=== PATIENT | female | born 1970 | race Two or more races ===

== ENCOUNTER 2023-06-11 12:21 | Outpatient (REF) | payer OTHER, SELFPAY ==
[2023-06-11 14:31] LABS: Erythrocyte Sedimentation Rate 2 MM/HR (0-20)
[2023-06-15 22:48] LABS: PTT (LAC) Screen 37 sec (<=40)
[2023-06-16 13:23] LABS: Cardiolipin IgG Ab <2.0 GPL-U/mL; Cardiolipin IgM Ab <2.0 MPL-U/mL
== END 2023-06-11 12:22 | disposition home or self-care (01) ==
LOC: HO.LAB 12:21
PROVIDERS: PCP Internal Medicine; Visit Provider Psychiatry & Neurology Neurology
DX: I63.9 Cerebral infarction, unspecified (principal)
CPT/HCPCS: 36415; 85597; 85598; 85613; 85652; 85670; 85730; 86147

== ENCOUNTER 2023-06-25 13:01 | Outpatient (AMB) | payer OTHER, SELFPAY ==
--- NOTE | 2023-06-25 13:02 | A.OFFVIS_ITS ---
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/ Cerebral infarction ?ESHA Intake Note: NPV w/ EKG Placement Assistant Required: No Accompanied by: Self / Same As Patient Allergies No Known Allergies [No Known Allergies*] Allergy (Verified 06/25/23 13:08) Medication List - Last Reconciled 06/25/23 by Michael Richter MD atorvastatin 80 mg PO BEDTIME clopidogrel (Plavix) 75 mg PO DAILY empagliflozin (Jardiance) 25 mg PO QAM hydrocodone-acetaminophen 5-300 mg 1 tab PO BID PRN lansoprazole 30 mg PO DAILY lisinopril 5 mg PO DAILY lorazepam 1 mg PO BEDTIME PRN metformin 1,000 mg PO BID semaglutide (Ozempic) 1 mg subcut QWEEK valacyclovir 500 mg PO DAILY HPI HPI Comments History of Present Illness Details This is a cardiology consultation regarding transesophageal ech ocardiogram. Patient has a history of diabetes and high lipids and she had a stroke in April of 2023. Apparently had right facial numbness and went to [facility] [place]. She states she had an echocardiogram including bubble study per her description. That was apparently unremarkable and then she was discharged home. She has seen Neurology and they have recommended a ESHA for further workup. Otherwise, she states she is feeling fine. Does not have any cardiac history like coronary disease. No cardiac symptoms either. She states she was much more overweight and in the last year has been losing weight. [facility] Surgical History (Updated 06/25/23 @ 13:14 by Renetta Taylor) No pertinent past surgical history Family History (Updated 06/25/23 @ 13:13 by Renetta Taylor) Mother No problems noted. Father No problems noted. Sister Heart problem Social History (Updated 06/25/23 @ 13:12 by Renetta Taylor) Alcohol intake: former Patient Tobacco Use Status: Former Tobacco user Quit Date: 2008 Review of Systems Const Denies weakness ENT Denies dizziness Card Denies chest pain, Denies chest pain with activity, Denies syncope, Denies rapid heart rate, Denies pedal edema, Denies edema, Denies leg edema, Denies lightheadedness, Denies palpitations, Denies dyspnea, Denies dyspnea on exertion and Denies orthopnea Resp Denies cough, Denies dyspnea and Denies dyspnea on exertion GI Denies hematochezia and Denies change in stool character Musc Denies abnormal gait, Denies muscle cramps, Denies muscle weakness, Denies numbness, Denies radiating pain into limb and Denies tingling Neuro Denies abnormal gait, Denies dizziness, Denies syncope, Denies numbness, Denies tingling and Denies weakness Endo Denies palpitations Physical Exam Vital Signs: Last Vital Signs Pulse 93 06/25/23 13:05 BP 108/62 06/25/23 13:05 BMI result Body Mass Index 28.7 Const General: comfortable and no acute distress Orientation/consciousness: patient oriented x3 HEENT Other: Unremarkable Head: Yes normal to inspection Neck Neck: Yes normal visual inspection Chest Chest palpation & inspection: normal inspection of the chest Resp Auscultation: clear to auscultation bilaterally Cardio Palpation: normal PMI Heart sounds: S1 normal heart sound present, S2 normal heart sound present, no gallops, no murmurs and no rubs GI Palpation (GI): Soft to palpation Back/Spine/Pelvis Other: unremarkable Skin General skin exam: no rashes or lesions noted Neuro General: patient oriented x3 Extrem General: Yes normal to inspection Psych Mental Status: mental status grossly normal Office Procedures EKG Details: EKG shows sinus rhythm at 93/Min; left atrial enlargement; no significant ST-T changes and otherwise unremarkable. [place] [address][id number], Complete Assessment & Plan Assessment & Plan (1) Stroke: Code(s): I63.9 - Cerebral infarction, unspecified Qualifiers: CVA mechanism: unspecified Qualified Code(s): I63.9 - Cerebral infarction, unspecified Plan Per neurology note, left acute coronary radiata infarct based on MRI. Will get records from [facility] including echocardiogram. She does not have any contraindications for transesophageal echocardiogram. She has had endoscopies before for apparently reflux disease, but does not have any dysphagia. Discussed with patient about the procedure and she is willing. Will schedule. Orders: Orders CA echo transesophageal Today I63.9 - Cerebral infarction, unspecified Coding Level of Care Code New Pt Level 4 (02707) Diagnoses Cerebrovascular accident (CVA), unspecified mechanism I63.9 CVA mechanism: unspecified CPT Codes EKG - CPT: 46739-[id number], Complete ([id number])
[2023-06-25 13:05] VITALS: BP 108/62; PULSE 93; BMI 28.7
== END 2023-06-25 13:31 | disposition home or self-care (01) ==
PROVIDERS: PCP Internal Medicine; Visit Provider Internal Medicine
DX: I63.9 Cerebral infarction, unspecified (principal)
CPT/HCPCS: 93010; 99204

== ENCOUNTER → 2023-06-25 13:01 | Outpatient (BNVA) | payer OTHER, SELFPAY | PROVIDERS: PCP Internal Medicine; Visit Provider Internal Medicine | DX: Z86.73 Personal history of transient ischemic attack (TIA), and cerebral infarction without residual deficits (principal) | CPT/HCPCS: 93005 ==

== ENCOUNTER 2023-07-16 09:27 | Day surgery (SDC) | payer OTHER, SELFPAY ==
[2023-07-16 09:45] VITALS: BMI 28.5
[2023-07-16 09:47] VITALS: BP 120/72; PULSE 96; TEMP 36.6; O2SAT 97
--- NOTE | 2023-07-16 10:32 | MHC.SHP ---
Pre-Procedural Eval Section A Date of Service: 07/16/23 The patient is an INPATIENT: No The History & Physical has been completed within 30 days and I have reviewed it.: Yes Section B Chief Complaint: Cerebral infarction, unspecified Allergies: Allergies Allergy/AdvReac Type Severity Reaction Status Date / Time No Known Allergies Allergy Verified 06/25/23 13:08 [No Known Allergies*] Plan I have reviewed the history and physical and performed a pertinent physical examination on my patient. No changes have occurred unless specified. Time Spent With Patient Time: Total time managing care of this patient today ____ minutes.
[2023-07-16 11:45] VITALS: BP 127/70; PULSE 106; RESP 35; TEMP 36.4; O2SAT 95
[2023-07-16 12:00] VITALS: BP 121/72; PULSE 92; RESP 20; O2SAT 95
[2023-07-16 12:15] VITALS: BP 118/64; PULSE 91; RESP 20; TEMP 36.8; O2SAT 95
== END 2023-07-16 12:53 | disposition home or self-care (01) ==
PROVIDERS: PCP Internal Medicine; Visit Provider Internal Medicine
PROC: (CPT 93312; principal; 2023-07-16 11:00)
DX: I63.9 Cerebral infarction, unspecified (principal); E11.9 Type 2 diabetes mellitus without complications; E78.5 Hyperlipidemia, unspecified; Z79.01 Long term (current) use of anticoagulants; Z79.85 Long-term (current) use of injectable non-insulin antidiabetic drugs; Z79.899 Other long term (current) drug therapy; Z87.891 Personal history of nicotine dependence
CPT/HCPCS: 93312; 82947

== ENCOUNTER → 2023-07-16 10:32 | Outpatient (BNV) | payer OTHER, SELFPAY | PROVIDERS: PCP Internal Medicine; Visit Provider Internal Medicine | DX: I63.9 Cerebral infarction, unspecified (principal) | CPT/HCPCS: 93312; 93320; 93325 ==

== ENCOUNTER → 2023-07-30 10:41 | Outpatient (REF) | payer OTHER, SELFPAY ==
--- NOTE | 2023-07-30 10:43 | HM_ITS ---
Cardiac event monitor Indication: Paroxysmal atrial fibrillation Technique: Patient was hooked up to cardiac event monitor on 07/30/2023 for total period of 30 days. Compliance rate was 91.3% of the time. Findings: Baseline rhythm was normal sinus rhythm with minimal heart rate of 85 beats per minute and maximum heart rate 157 beats per minute. 55% of time noted sinus tachycardia with frequent sinus tachycardia. There were no pauses noted. Rare isolated PACs were noted. No episodes of atrial fibrillation 1 noted. Patient reported to events without any accompanying symptoms correlating with sinus rhythm. Conclusion: 1. Baseline was normal sinus rhythm with no pauses with frequent sinus tachycardia 2. Rare PACs noted 3. No episodes of atrial fibrillation 4. Patient reported events correlated with sinus rhythm MTDD
== END ==
LOC: HO.CARD 10:41
PROVIDERS: PCP Internal Medicine; Visit Provider Internal Medicine
DX: I48.91 Unspecified atrial fibrillation (principal)
CPT/HCPCS: 93270

== ENCOUNTER → 2023-07-30 10:43 | Outpatient (BNV) | payer OTHER, SELFPAY | PROVIDERS: PCP Internal Medicine; Visit Provider Internal Medicine Cardiovascular Disease | DX: R00.0 Tachycardia, unspecified (principal) | CPT/HCPCS: 93272 ==

== ENCOUNTER 2023-09-10 13:25 | Outpatient (AMB) | payer OTHER, SELFPAY ==
--- NOTE | 2023-09-10 13:26 | A.OFFVIS_ITS ---
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 Accompanied by: Self / Same As Patient Allergies No Known Allergies [No Known Allergies*] Allergy (Verified 09/10/23 13:30) Medication List - Last Reconciled 09/10/23 by Michael Richter MD atorvastatin 80 mg PO BEDTIME clopidogrel (Plavix) 75 mg PO DAILY empagliflozin (Jardiance) 25 mg PO QAM hydrocodone-acetaminophen 5-300 mg 1 tab PO BID PRN lansoprazole 30 mg PO DAILY lisinopril 5 mg PO DAILY lorazepam 1 mg PO BEDTIME PRN metformin 1,000 mg PO BID semaglutide (Ozempic) 2 mg subcut QWEEK valacyclovir 500 mg PO DAILY HPI HPI Comments History of Present Illness Details Andie returns for follow-up. She was referred by Neurology for evaluation of cardiac source of embolus. She has a history of diabetes, high lipids and she had a stroke in April 2023. Apparently had right facial numbness and went to [facility]. She states she had an echocardiogram including bubble study per her description. That was apparently unremarkable and then she was discharged home. She has seen Neurology and they have recommended ESHA/ILR. Otherwise, she states she is feeling fine. Does not have any cardiac history like coronary disease. No cardiac symptoms either. She states she was much more overweight and in the last year has been losing weight. Recently ESHA was completed and that is unremarkable. [facility] Medical History (Updated 07/15/23 @ 08:56 by Nola Mcclure RN) GERD (gastroesophageal reflux disease) Elevated cholesterol CVA (cerebral vascular accident) Diabetes Surgical History No pertinent past surgical history Family History Mother No problems noted. Father No problems noted. Sister Heart problem Social History (Updated 09/10/23 @ 13:31 by Renetta Taylor) Alcohol intake: current Alcohol intake frequency: holidays/special occasions only Patient Tobacco Use Status: Former Tobacco user Quit Date: Review of Systems Const Denies weakness ENT Denies dizziness Card Denies chest pain, Denies chest pain with activity, Denies syncope, Reports rapid heart rate, Denies pedal edema, Denies edema, Denies leg edema, Denies palpitations, Reports dyspnea, Denies dyspnea on exertion and Denies orthopnea Resp Denies cough, Reports dyspnea and Denies dyspnea on exertion GI Denies hematochezia and Denies change in stool character Musc Denies abnormal gait, Denies muscle cramps, Denies muscle weakness, Denies numbness, Denies radiating pain into limb and Denies tingling Neuro Denies abnormal gait, Denies dizziness, Denies syncope, Denies numbness, Denies tingling and Denies weakness Endo Denies palpitations Physical Exam Vital Signs: Last Vital Signs Pulse 113 H 09/10/23 13:27 BP 108/68 09/10/23 13:27 BMI result Body Mass Index 28.5 Const General: comfortable and no acute distress Orientation/consciousness: patient oriented x3 HEENT Other: Unremarkable Head: Yes normal to inspection Neck Neck: Yes normal visual inspection Chest Chest palpation & inspection: normal inspection of the chest Resp Auscultation: clear to auscultation bilaterally Cardio Palpation: normal PMI Heart sounds: S1 normal heart sound present, S2 normal heart sound present, no gallops, no murmurs and no rubs GI Palpation (GI): Soft to palpation Back/Spine/Pelvis Other: unremarkable Skin General skin exam: no rashes or lesions noted Neuro General: patient oriented x3 Extrem General: Yes normal to inspection Psych Mental Status: mental status grossly normal Assessment & Plan Assessment & Plan (1) Stroke: Code(s): I63.9 - Cerebral infarction, unspecified Qualifiers: CVA mechanism: unspecified Qualified Code(s): I63.9 - Cerebral infarction, unspecified Plan Per neurology note, left acute coronary radiata infarct based on MRI. [facility]chocardiogram from [facility] showed hyperdynamic LVEF, mild LVH and otherwise unremarkable. Bubble study was negative. Transesophageal echocardiogram showed normal LVEF, no evidence of interatrial shunting. Small degree of aortic plaque. Discussed with neurology and they are recommending implantable loop recorder placement. Explained the patient about the procedure and also showed her the device and how it works. She understands and agrees. Will arrange the same. Orders: Orders Implantable Loop Rec Implant Today I63.9 - Cerebral infarction, unspecified Coding Level of Care Code Est Pt Level 4 (47496) Diagnoses Cerebrovascular accident (CVA), unspecified mechanism I63.9 CVA mechanism: unspecified
[2023-09-10 13:27] VITALS: BP 108/68; PULSE 113; BMI 28.5
== END 2023-09-10 13:49 | disposition home or self-care (01) ==
PROVIDERS: PCP Internal Medicine; Visit Provider Internal Medicine
DX: I63.9 Cerebral infarction, unspecified (principal)
CPT/HCPCS: 99214

== ENCOUNTER → 2023-09-10 13:25 | Outpatient (BNVA) | payer OTHER, SELFPAY | PROVIDERS: PCP Internal Medicine; Visit Provider Internal Medicine | DX: I63.9 Cerebral infarction, unspecified (principal) | CPT/HCPCS: 99212 ==

== ENCOUNTER 2023-09-16 12:38 | Outpatient (REF) | payer OTHER, SELFPAY ==
[2023-09-16 13:44] VITALS: BMI 27.6
[2023-09-16 13:45] VITALS: BP 135/83; PULSE 95; RESP 16; TEMP 36.7; O2SAT 97
[2023-09-16 14:13] VITALS: BP 123/75; PULSE 88; RESP 16; O2SAT 96
--- NOTE | 2023-09-16 14:13 | P.BOP_ITS ---
Brief Operative Note Date of Service: 09/16/23 Pre-op diagnosis: CVA Post-op diagnosis: same Procedure: Placement of implantable loop recorder Implants: After obtaining informed consent patient was laid supine on the table in minor surgery suite. Patient is precordial area was then prepped and draped in a sterile fashion. Patient was then given 2% lidocaine intradermally and subcutaneously in the left parasternal space. A [employer] implantable loop recorder with serial number [id number] was implanted in the subcutaneous space using modified Seldinger technique. Measured R-wave at 0.5 mV. The wound was then closed with Steri-Strips. Pressure dressing was applied. Patient tolerated the procedure well Surgeon: Darrin Mckeon MD Anesthesia: local Was an Surg Rn used for this Procedure?: No Estimated blood loss (mL): 2 Pathology: none sent Condition: stable Disposition: same day
== END 2023-09-16 12:39 | disposition home or self-care (01) ==
LOC: HO.MS 12:38
PROVIDERS: PCP Internal Medicine; Visit Provider Internal Medicine Cardiovascular Disease
PROC: (CPT 33285; principal; 2023-09-16 14:10)
DX: I63.9 Cerebral infarction, unspecified (principal)
CPT/HCPCS: 33285; C1764

== ENCOUNTER → 2023-09-16 12:38 | Outpatient (BNV) | payer OTHER, SELFPAY | PROVIDERS: PCP Internal Medicine; Visit Provider Internal Medicine Cardiovascular Disease | DX: I63.9 Cerebral infarction, unspecified (principal) | CPT/HCPCS: 33285 ==

== ENCOUNTER 2023-09-25 12:52 | Outpatient (AMB) | payer OTHER, SELFPAY ==
[2023-09-25 12:53] VITALS: BP 140/50; PULSE 99; BMI 28.1
--- NOTE | 2023-09-25 12:53 | MHC.OFFVIS ---
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 Accompanied by: Self / Same As Patient Allergies epinephrine Adverse Reaction (Verified 09/16/23 14:39) Palpitations Medication List - Last Reconciled 09/25/23 by Zeny Mckeon NP atorvastatin 80 mg PO BEDTIME clopidogrel (Plavix) 75 mg PO DAILY empagliflozin (Jardiance) 25 mg PO QAM hydrocodone-acetaminophen 5-300 mg 1 tab PO BID PRN lansoprazole 30 mg PO DAILY lisinopril 5 mg PO DAILY lorazepam 1 mg PO BEDTIME PRN metformin 1,000 mg PO BID semaglutide (Ozempic) 2 mg subcut QWEEK valacyclovir 500 mg PO DAILY HPI HPI Comments History of Present Illness Details 52-year-old female here for a wound check after ILR placement. She had the ILR placed on 09/16/[address] Mckeon. Patient reports no complaints at this time and has been doing well since she last seen Dr. Richter. She reports she had pain when she went to hug her and she stretched up but denies any other pain. She also denies any fever, chills, odor, palpitations, or shortness of breath. Site is healing well and as expected. [facility] Medical History (Updated 09/25/23 @ 14:05 by Zeny Mckeon NP) GERD (gastroesophageal reflux disease) Elevated cholesterol CVA (cerebral vascular accident) Diabetes Surgical History No pertinent past surgical history Family History Mother No problems noted. Father No problems noted. Sister Heart problem Social History Alcohol intake: current Alcohol intake frequency: holidays/special occasions only Patient Tobacco Use Status: Former Tobacco user Quit Date: Review of Systems Const Denies chills, Denies fatigue, Denies fever(s), Denies frequent falls, Denies weakness, Denies weight gain and Denies weight loss ENT Denies dizziness Card Denies chest pain, Denies edema, Denies leg edema, Denies lightheadedness, Denies palpitations, Denies dyspnea and Denies dyspnea on exertion Resp Denies cough, Denies dyspnea and Denies dyspnea on exertion GI Denies hematochezia Musc Denies abnormal gait, Denies muscle weakness, Denies numbness, Denies radiating pain into limb and Denies tingling Neuro Denies abnormal gait, Denies dizziness, Denies frequent falls, Denies numbness, Denies tingling and Denies weakness Endo Denies fatigue and Denies palpitations Physical Exam Vital Signs: Last Vital Signs Pulse 99 09/25/23 12:53 BP 140/50 H 09/25/23 12:53 BMI result Body Mass Index 28.1 Const General: healthy appearing and no acute distress Orientation/consciousness: patient oriented x3 HEENT Head: Yes normal to inspection Eyes General: appearance normal, both eyes and all related structures Neck Neck: Yes normal visual inspection Chest Chest palpation & inspection: normal inspection of the chest Resp Effort & Inspection: normal respiratory effort Auscultation: clear to auscultation bilaterally Cardio Jugular venous distension: no JVD Palpation: normal PMI Rate: regular rate Rhythm: regular rhythm Heart sounds: S1 normal heart sound present, S2 normal heart sound present, no click, no gallops, no murmurs and no rubs GI Inspection: Yes normal to inspection Palpation (GI): Soft to palpation Skin General skin exam: no rashes or lesions noted Neuro General: patient oriented x3 Extrem General: Yes normal to inspection Psych Appearance: grossly normal Assessment & Plan Assessment & Plan (1) Implantable loop recorder present: Comment: 09/16/[address] Mckeon post CVA Code(s): Z95.818 - Presence of other cardiac implants and grafts Plan Wound is healing appropritately. Site intact and dry. Steri-strips removed. Informed to report any opening of the site, fever, chills, odor, or drainage. Remote monitoring explained. Coding Level of Care Code Est Pt Level 3 (69398) Diagnoses Implantable loop recorder present Z95.818
[2023-09-25 13:08] VITALS: BP 110/62
== END 2023-09-25 13:14 | disposition home or self-care (01) ==
PROVIDERS: PCP Internal Medicine; Visit Provider Nurse Practitioner
DX: Z95.818 Presence of other cardiac implants and grafts (principal)
CPT/HCPCS: 99213

== ENCOUNTER → 2023-09-25 12:52 | Outpatient (BNVA) | payer OTHER, SELFPAY | PROVIDERS: PCP Internal Medicine; Visit Provider Nurse Practitioner | DX: Z95.818 Presence of other cardiac implants and grafts (principal) | CPT/HCPCS: 99212 ==

== ENCOUNTER → 2023-10-24 23:59 | Outpatient (BNV) | payer OTHER, SELFPAY ==
--- NOTE | 2023-10-26 19:38 | MHC.OFFVIS ---
Intake Intake Visit Reasons: Remote ILR Check- [employer] Allergies epinephrine Adverse Reaction (Verified 09/16/23 14:39) Palpitations PFSH Medical History GERD (gastroesophageal reflux disease) Elevated cholesterol CVA (cerebral vascular accident) Diabetes Surgical History No pertinent past surgical history Family History Mother No problems noted. Father No problems noted. Sister Heart problem Social History Alcohol intake: current Alcohol intake frequency: holidays/special occasions only Patient Tobacco Use Status: Former Tobacco user Quit Date: Office Procedures Cardiac Device Check Cardiac Device Check Details: Date of service 10/23/2023; in the current monitoring period, there is no evidence of atrial fibrillation. [id number] Cardiac Interrogation, subcut cardiac rhythm monitor Procedure code (CPT) selection complete Assessment & Plan Assessment & Plan (1) Stroke: Code(s): I63.9 - Cerebral infarction, unspecified Qualifiers: CVA mechanism: unspecified Qualified Code(s): I63.9 - Cerebral infarction, unspecified Plan x Coding Level of Care Code Procedure Only Diagnoses Cerebrovascular accident (CVA), unspecified mechanism I63.9 CVA mechanism: unspecified CPT Codes Cardiac Device Check - Cardiac Device 16: [id number] Cardiac Interrogation, subcut cardiac rhythm monitor ([id number])
== END ==
PROVIDERS: PCP Internal Medicine; Visit Provider Internal Medicine
DX: I63.9 Cerebral infarction, unspecified (principal)
CPT/HCPCS: 93298

== ENCOUNTER 2023-11-23 08:17 | Emergency (ER) | payer OTHER, SELFPAY ==
--- NOTE | ~2023-11-23 | CT_ITS ---
EXAMINATION: CT ANGIOGRAM HEAD CT ANGIOGRAM NECK CLINICAL INFORMATION: Dizziness. Leaning to the right. History of stroke. COMPARISON: None available. TECHNIQUE: Initial noncontrast military nurse imaging of the head and neck was performed. Noncontrast head CT was also performed. Test bolus sequences followed by intravenous administration 70 mL of Omnipaque 350. Helical imaging was performed in the axial plane from the aortic arch to the skull vertex. Delayed postcontrast imaging of the head was also performed. The data was processed at the geospatial technologist's workstation for generation of MIP sequences. Angled MIPs and volume rendered reformatted images were also generated at an offline 3D workstation. Stenoses are assessed in accordance with NASCET criteria unless otherwise indicated. This CT examination was performed using dose optimization techniques as appropriate, variously including the following: *Automated exposure control. *Adjustment of mA and/or kV according to patient size (this includes techniques or standardized protocols for targeted exams where dose is matched to indication/reason for exam; i.e. extremities or head). *Use of iterative reconstruction technique. DLP: 2142 mGy-cm FINDINGS: CT Head: There is chronic appearing lacunar infarct within the left simpson radiata. No additional loss of becker-white matter differentiation. No evidence of acute intracranial hemorrhage. There is no abnormal attenuation within the brain parenchyma. The ventricles are normal in morphology and size. No evidence for obstructive hydrocephalus. No abnormal mass effect or midline shift. No extra-axial fluid collections. No pathologic intra-axial enhancement or regional oligemia. No acute soft tissue or osseous abnormalities. Moderate mucosal thickening of the right maxillary and ethmoid sinuses. Mild mucosal thickening of the remaining paranasal sinuses. The mastoid air cells and middle ear cavities are clear. Mild degenerative arthropathy of the left temporomandibular joint. CT Neck: The thyroid gland and remaining cervical soft tissues are within normal limits. Mild reversal of the normal cervical lordosis centered on C5-C6. Moderate degenerative disc disease at C5-C6. Facet and uncovertebral joint arthropathy leads to osseous encroachment on the neural foramina at C5-C6. CT Upper Chest: The visualized lung apices and upper mediastinum are within normal limits. Neck CTA: Aortic Arch: Normal contour and caliber with mild calcific atherosclerotic disease. Classic 3 vessel branching pattern of the aortic arch. Great Vessel Origins: No significant stenosis of the branch origins. Right Common Carotid Artery: No focal stenosis or occlusion. Cervical Right Internal Carotid Artery: Mixed fibrofatty and calcific atherosclerotic disease of the carotid bulb and proximal internal carotid artery causing less than 50% stenosis. Left Common Carotid Artery: No focal stenosis or occlusion. Cervical Left Internal Carotid Artery: Mixed fibrofatty and calcific atherosclerotic disease of the carotid bulb and proximal internal carotid artery causing less than 50% stenosis. Cervical Right Vertebral Artery: Co-dominant. No focal stenosis or occlusion. Cervical Left Vertebral Artery: Co-dominant. No focal stenosis or occlusion. Brain CTA: Intracranial Internal Carotid Arteries: No focal stenosis or occlusion. Right Anterior Cerebral Artery: Normal A1 segment. Normal opacification of the distal TAWANNA segments. Left Anterior Cerebral Artery: Normal A1 segment. Normal opacification of the distal TAWANNA segments. Anterior Communicating Artery: Normal. Right Middle Cerebral Artery: Normal M1 segment of the MCA without focal stenosis or occlusion. Normal arborization of the distal segments. Left Middle Cerebral Artery: Normal M1 segment of the MCA without focal stenosis or occlusion. Normal arborization of the distal segments. Right Vertebral Artery: Normal V4 segment. Normal opacification of the proximal segments of the posterior inferior cerebellar artery. Left Vertebral Artery: Normal V4 segment. Normal opacification of the proximal segments of the posterior inferior cerebellar artery. Basilar Artery: Normal without focal stenosis or occlusion. Normal appearance of the proximal superior cerebellar arteries. Right Posterior Cerebral Artery: Normal P1 segment. Normal opacification of the distal CLINICAL RESEARCH TECHNICIAN segments. Left Posterior Cerebral Artery: Normal P1 segment. Normal opacification of the distal CLINICAL RESEARCH TECHNICIAN segments. Normal opacification of the superior sagittal, straight, transverse, and sigmoid sinuses. CT/CT angio head neck IMPRESSION: 1. No evidence of acute intracranial hemorrhage or edematous territorial infarction. 2. Chronic appearing lacunar infarct within the left simpson radiata. 3. CTA of the head and neck without proximal occlusion or flow-limiting stenosis.
[2023-11-23 08:35] VITALS: BP 139/79; BP 155/96; PULSE 90; PULSE 91; RESP 16; TEMP 36.7; O2SAT 96; O2SAT 97; BMI 27.9
--- NOTE | 2023-11-23 08:42 | ECG_ITS ---
Test Reason : dizziness Blood Pressure : / mmHG Vent. Rate : 094 BPM Atrial Rate : 094 BPM P-R Int : 168 ms QRS Dur : 076 ms QT Int : 346 ms P-R-T Axes : 048 -01 028 degrees QTc Int : 432 ms Normal sinus rhythm Normal ECG No previous ECGs available Referred By: Adriana Boogie Electronically Signed By:Benny Meyer
--- NOTE | 2023-11-23 08:46 | ED.DIZZY ---
HPI - Dizziness General Chief Complaint: Dizziness Stated Complaint: DIZZY UPON STANDING PER EMS Time Seen by Provider: 11/23/23 08:18 Source: patient and old records reviewed Mode of arrival: ambulatory Limitations: no limitations History of Present Illness HPI Narrative: 52 yo female hx of HLD, DM, L simpson radiata infarct April 2023 (R facial numbness) treated at [facility] currently on statin and plavix has loop recorder here with c/o going to bed at 0130am normal then upon waking felt very dizzy and that she was leaning to the right. She notes if she laid still or did not move she was okay. She did have recent URI and sinus pressure on the right. She denies headaches or trauma. She is compliant with medications. Her symptoms have improved. MD elicited complaint: lightheadedness and difficulty walking Onset (ago): hour(s) (upon waking 1 hour ago) Timing: awoke with symptoms Severity: moderate Description: off-balance and difficulty walking Context: change in body position History of similar symptoms: No Exacerbating factors: movement/ambulation and change in body position Relieving factors: remaining still Associated symptoms: other (URI symptoms) Related Data Home Medications Medication Instructions Recorded Confirmed atorvastatin 80 mg tablet 80 mg PO BEDTIME 06/25/23 09/10/23 clopidogrel 75 mg tablet (Plavix) 75 mg PO DAILY 06/25/23 09/10/23 empagliflozin 25 mg tablet 25 mg PO QAM 06/25/23 09/10/23 (Jardiance) hydrocodone 5 mg-acetaminophen 300 1 tab PO BID PRN Pain 06/25/23 09/10/23 mg tablet lansoprazole 30 mg capsule,delayed 30 mg PO DAILY 06/25/23 09/10/23 release lisinopril 5 mg tablet 5 mg PO DAILY 06/25/23 09/10/23 lorazepam 1 mg tablet 1 mg PO BEDTIME PRN anxiety/sleep 06/25/23 09/10/23 metformin 1,000 mg tablet 1,000 mg PO BID 06/25/23 09/10/23 valacyclovir 500 mg tablet 500 mg PO DAILY 06/25/23 09/10/23 semaglutide 1 mg/dose (2 mg/1.5 2 mg subcut QWEEK 09/10/23 09/10/23 mL) subcutaneous pen injector (Ozempic) Previous Rx's Medication Instructions Recorded meclizine 25 mg tablet 25 mg PO TID PRN dizziness #30 tabs 11/23/23 Allergies Allergy/AdvReac Type Severity Reaction Status Date / Time epinephrine AdvReac Palpitation Verified 11/23/23 08:35 s Review of Systems Review of Systems: Constitutional : No Fever, No Chills, No Fatigue ENT/Mouth : No sore throat, No Rhinorrhea Eyes: No Eye Pain, No Swelling, No Redness Cardiovascular : No Chest Pain, No SOB, No Dyspnea on Exertion Respiratory : No Cough, No Sputum Gastrointestinal : No Nausea, No Vomiting, No Diarrhea, No abdominal Pain Genitourinary : No Dysuria, No Urinary Frequency, No Hematuria, Musculoskeletal : No joint pain, No Myalgias, No Joint Swelling Skin : No Skin Lesions, No rash Neuro : No Weakness, No Numbness, pos Dizziness, no Headache Psych : No Anxiety/Panic, No Depression Heme/Lymph: No Bruising, No Bleeding,No Lymphadenopathy Endocrine : No Polyuria, No Polydipsia All other systems reviewed and are negative [facility] Past Medical History Attestation statement: The following information was validated with the patient. Source: old records reviewed Medical History GERD (gastroesophageal reflux disease) Elevated cholesterol CVA (cerebral vascular accident) Diabetes Surgical History No pertinent past surgical history Family History Family History Mother No problems noted. Father No problems noted. Sister Heart problem Social History Social History Alcohol intake: current Alcohol intake frequency: holidays/special occasions only Patient Tobacco Use Status: Former Tobacco user Quit Date: Smoked in Last 30 Days: No Use of substances other than those prescribed or required for medical reasons: No Advance Directives: Yes Advance Directives Information Provided: No Advance Directives on File: No Patient : No Physical Exam Vital Signs: Vital Signs: Last Vital Signs Temp 98.1 F 11/23/23 08:35 Pulse 102 H 11/23/23 09:14 Resp 16 11/23/23 08:35 BP 120/85 11/23/23 09:14 Pulse Ox 97 11/23/23 08:35 O2 Del Method Room Air 11/23/23 08:35 BMI result Body Mass Index 27.9 Appearance: Alert. Oriented X3. No acute distress. Eyes: Pupils equal, round and reactive to light. ENT: Pharynx normal. Neck: Normal inspection. Neck supple. CVS: Normal heart rate and rhythm. Pulses normal. Respiratory: No respiratory distress. Breath sounds normal. Abdomen: Soft and non-tender. Skin: Skin warm and dry. Normal skin color. Normal skin turgor. Extremities: No lower extremity edema. No calf ttp Neuro: Oriented X 3. No motor deficit. No sensory deficit. CN2-12 intact on walking no ataxia but is slightly wobbly she does have slight nystagmus to the right when you sit her up NIH Stroke Scale Internal: Initial- Upon Arrival Level of Consciousness: Alert Level of Consciousness Questions: Answers both questions correctly Level of Consciousness Commands: Performs both tasks correctly Best Gaze: Normal Visual: No visual loss Facial Palsy: Normal Motor Arm (Right): No drift Motor Arm (Left): No drift Motor Leg (Right): No drift Motor Leg (Left): No drift Limb Ataxia: Absent Sensory: Normal Best Language: No aphasia Dysarthia: Normal Extinction and Inattention: No abnormality Score: 0 Course Course Course Narrative: only dizzy when standing - cannot get MRI due to loop recorder which was just placed. will reassess after fluids Reevaluation(s) Reevaluation #1: turning head to right and sitting up causes symptoms has mild nystagmus to the right when turning head will start on meclizine likely triggered by sinus issue Reevaluation #2: feels better stable for DC Medications Administered Discontinued Medications Generic Name Dose Route Start Last Admin Trade Name Freq PRN Reason Stop Dose Admin Sodium Chloride 1,000 mls @ 999 mls/hr 11/23/23 10:30 11/23/23 11:34 Ns IV 11/23/23 11:30 Infused .Q1H1M MATTIE Infusion Iohexol 100 ml 11/23/23 10:05 11/23/23 10:05 Iohexol 350 Mg/Ml 100 Ml Infus..Btl IV 11/23/23 10:06 70 ml ONCE ONE Administration Meclizine HCl 25 mg 11/23/23 11:36 11/23/23 12:23 Meclizine Hcl 25 Mg Tablet PO 11/23/23 11:37 25 mg ONCE ONE Administration Medical Decision Making Medical Decision Making [facility] Narrative: 52 yo female hx of HLD, DM, 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 Her last known well is at 130am and she is presenting 7 hours later. She would be out of the window for TNK. She has symptoms not at rest but with sitting and standing up. At time would be unusual for stroke seems more peripheral but given her hx will need labs, CTA head and neck and work up for possible CVA vs sinusitis causing symptoms. Differential Diagnosis Differential Diagnoses: The differential diagnosis associated with the presentation includes URI causing vertigo symptoms and CVA Admission/Observation Consideration of admission/observation: Escalation of care including admission/observation considered work up reassuring symptoms seem more peripheral will DC home with meclizine Dr. Childers reviewed images as well no need for emergent MRI Lab Data [facility] Lab Attestation statement: I reviewed the patient's lab results. 11/23/23 08:50 11/23/23 08:50 Labs: Lab Results 11/23/23 Range/Units 08:50 WBC 5.6 (4.8-10.8) X10*3/uL RBC 4.37 (4.20-5.50) X10*6/uL Hgb 14.3 (12.0-16.0) g/dl Hct 41.1 (37.0-47.0) % MCV 94.1 (80.0-98.0) fL MCH 32.7 (27.0-33.0) pg MCHC 34.8 (31.0-35.0) g/dl RDW 12.6 (11.0-16.0) % Plt Count 248 (160-400) X10*3/uL MPV 9.7 (9.4-12.3) fL Immature Gran % (Auto) 0.2 (0.0-0.4) % Neut % (Auto) 67.6 (45-73) % Lymph % (Auto) 24.1 (20-40) % Kane % (Auto) 6.3 (2-11) % Eos % (Auto) 1.4 (0-4) % Baso % (Auto) 0.4 (0-2) % Lymph # (Auto) 1.3 (1.2-4.9) X10*3/uL Kane # (Auto) 0.4 (0.1-1.2) X10*3/uL Eos # (Auto) 0.1 (0.0-0.4) X10*3/uL Baso # (Auto) 0.0 (0.0-0.2) X10*3/uL Abs Immat Gran (auto) 0.01 (0.00-0.03) X10*3/uL Absolute Neuts (auto) 3.8 (2.0-8.3) x10*3/uL Absolute Nucleated RBC 0.000 (0.0-0.012) X10*3/uL Nucleated RBC % (auto) 0.0 (0.0-0.2) /100WBC PT 11.6 (11.1-13.3) SEC INR 1.0 (0.9-1.1) Sodium 142 (135-145) mmol/L Potassium 3.8 (3.3-5.1) mmol/L Chloride 106 (96-108) mmol/L Carbon Dioxide 25 (22-29) mmol/L Anion Gap 15 (12-20) BUN 13 (9-16) mg/dL Creatinine 0.57 (0.5-1.4) mg/dL Estim Creat Clear Calc 110.7 Estimated GFR > 60 Random Glucose 141 H (60-115) mg/dL Calcium 9.8 (8.4-10.2) mg/dL Magnesium 1.8 (1.6-2.6) mg/dL Total Bilirubin 0.5 (0.0-1.0) mg/dL Direct Bilirubin 0.2 (0.0-0.5) mg/dL AST 20 (5-31) U/L ALT 41 H (0-31) U/L Alkaline Phosphatase 68 (39-117) U/L Troponin I High Sens < 2.7 (<3.5-17.0) ng/L Total Protein 6.8 (6.5-8.0) g/dL Albumin 4.4 (3.5-5.0) g/dL Urine Color Yellow Urine Appearance Clear Urine pH 5.5 (5.0-9.0) Ur Specific Jackson >= 1.030 H (1.005-1.025) Urine Protein Negative (Neg-Trace) mg/dL Urine Glucose (UA) >=1000 H (Negative) mg/dL Urine Ketones Negative (Negative) mg/dL Urine Blood Negative (Negative) Urine Nitrite Negative (Negative) Ur Leukocyte Esterase Negative (Negative) Urine RBC 0-2 (0-2) /HPF Urine WBC 0-5 (0-5) /HPF Ur Squamous Epith Cells 0-2 (0-2) /HPF Urine Bacteria None Seen (None Seen) Hyaline Casts 0-2 (0-2) /LPF COVID-19 (KONSTANTIN) Negative (Negative) COVID-19 Clin Com See Note Independent Interpretation I performed an independent interpretation of an: EKG and CT Scan (no acute stroke) Interpretation: Rate: 94 Rhythm: NSR [place]: left Normal P waves. Normal TEJAS. Normal QRS complex. ST T wave : no ALLEY normal qTC: 432 prior studies: no acute ischemia The study has been interpreted contemporaneously by me. . Radiology Impression Discussion of test interpretation with radiology: I have reviewed the radiologist's reading. External Record Review External record reviewed: Inpatient record Prescription Management I considered prescription management with: Other Discharge Plan Discharge Clinical Impression: Dizziness, Acute dehydration Patient Disposition: Home, Self-Care Instructions: Dehydration (ED), Dizziness (ED) Additional Instructions: return for weakness, numbness, vision changes headaches or any other concerns. follow up with your neurologist. CTA of head and neck normal stay hydrated and rest today Prescriptions: New meclizine 25 mg tablet 25 mg PO TID PRN (Reason: dizziness) Qty: 30 0RF No Action Jardiance 25 mg tablet 25 mg PO QAM metformin 1,000 mg tablet 1,000 mg PO BID lisinopril 5 mg tablet 5 mg PO DAILY clopidogrel [Plavix] 75 mg tablet 75 mg PO DAILY atorvastatin 80 mg tablet 80 mg PO BEDTIME valacyclovir 500 mg tablet 500 mg PO DAILY hydrocodone-acetaminophen 5-300 mg tablet 1 tab PO BID PRN (Reason: Pain) lorazepam 1 mg tablet 1 mg PO BEDTIME PRN (Reason: anxiety/sleep) lansoprazole 30 mg capsule,delayed release(DR/EC) 30 mg PO DAILY Ozempic 1 mg/dose (2 mg/1.5 mL) pen injector 2 mg subcut QWEEK Stand Alone Forms: Work/School Release
[2023-11-23 08:58] LABS: MANUAL DIFF FLAG NO
[2023-11-23 09:00] LABS: Appearance Urine Clear; Basophils Percent Auto 0.4 % (0-2); Color Urine Yellow; Eosinophils Absolute Auto 0.1 X10*3/uL (0.0-0.4); Eosinophils Percent Auto 1.4 % (0-4); Glucose Urine UA >=1000 mg/dL (Negative); Hematocrit 41.1 % (37.0-47.0); Hemoglobin 14.3 g/dl (12.0-16.0); Imm Gran Abs Auto 0.01 X10*3/uL (0.00-0.03); Imm Gran Pct Auto 0.2 % (0.0-0.4); Leukocyte Esterase Urine Negative (Negative); Lymphocytes Absolute Auto 1.3 X10*3/uL (1.2-4.9); Lymphocytes Percent Auto 24.1 % (20-40); Mean Corpuscular HGB Conc 34.8 g/dl (31.0-35.0); Mean Corpuscular Hemoglobin 32.7 pg (27.0-33.0); Mean Corpuscular Volume 94.1 fL (80.0-98.0); Mean Platelet Volume 9.7 fL (9.4-12.3); Monocytes Absolute Auto 0.4 X10*3/uL (0.1-1.2); Monocytes Percent Auto 6.3 % (2-11); Neutrophils Absolute Auto 3.8 x10*3/uL (2.0-8.3); Neutrophils Percent Auto 67.6 % (45-73); Nitrite Urine Negative (Negative); PH 5.5 (5.0-9.0); Platelet Count 248 X10*3/uL (160-400); Red Blood Count 4.37 X10*6/uL (4.20-5.50); Red Cell Distribution Width 12.6 % (11.0-16.0); Specific Gravity - Urine >= 1.030 (1.005-1.025); UMIC TRIGGER UACC YES; Urine Blood Negative (Negative); Urine Ketones Negative (Negative); Urine Protein Negative (Neg-Trace); White Blood Count 5.6 X10*3/uL (4.8-10.8)
--- NOTE | 2023-11-23 09:01 | PC.NURSE ---
a&ox4. vss and up to date. nsr on the electric motor mechanic. pt biba from home d/t onset of dizziness when waking up. pt states sx started around 0700 this morning. ems states pt was found on the floor upon arrival. pt denies falling. pt states she had lowered herself to the ground because movement makes the dizziness increase. pt unable to ambulate to the bathroom on her own. 2:1 assist needed. pt ambulates w/ unsteady gait. usually independent. denies pain. cms intact. strength equal bilaterally. pt passed nursing swallow eval w/o difficulty. 20gIV placed in the right AC. labs/urine obtained/sent to lab. tech bedside performing ekg/orthostatic vitals. no sob/wob noted. respirations even and unlabored. pt aware of plan of care at this time. call abrams placed within reach.
[2023-11-23 09:05] LABS: Bacteria Urine None Seen (None Seen); Hyaline Casts Urine 0-2 /LPF (0-2); Prothrombin Time 11.6 SEC (11.1-13.3); RBC Urine 0-2 /HPF (0-2); Squamous Epithelial Cell Urine 0-2 /HPF (0-2); WBC Urine 0-5 /HPF (0-5)
[2023-11-23 09:11] VITALS: BP 121/72; PULSE 86
[2023-11-23 09:12] VITALS: BP 131/80; PULSE 94
[2023-11-23 09:14] VITALS: BP 120/85; PULSE 102
[2023-11-23 09:21] LABS: Alanine Aminotransferase 41 U/L (0-31); Albumin Level 4.4 g/dL (3.5-5.0); Alkaline Phosphatase 68 U/L (39-117); Anion Gap 15 (12-20); Aspartate Amino Transferase 20 U/L (5-31); Bilirubin Direct 0.2 mg/dL (0.0-0.5); Bilirubin Total 0.5 mg/dL (0.0-1.0); Blood Urea Nitrogen 13 mg/dL (9-16); Calcium 9.8 mg/dL (8.4-10.2); Carbon Dioxide 25 mmol/L (22-29); Chloride 106 mmol/L (96-108); Creatinine Clr Calc Pharmacy 110.7; Estimated Glomerular Filt Rate > 60; Glucose Random 141 mg/dL (60-115); Magnesium 1.8 mg/dL (1.6-2.6); Potassium 3.8 mmol/L (3.3-5.1); Sodium 142 mmol/L (135-145); Total Protein 6.8 g/dL (6.5-8.0)
[2023-11-23 09:25] LABS: COVID-19 Test Negative (Negative); IDNOW Serial# 152EDE1D
[2023-11-23 09:32] LABS: Troponin-I High Sensitivity < 2.7 ng/L (<3.5-17.0)
--- NOTE | 2023-11-23 09:55 | PC.NURSE ---
pt to CT at this time.
[2023-11-23] MEDS: iohexoL 350 MG/ML 100 ML INFUS..BTL IV (10:05)
[2023-11-23] MEDS: 0.9 % Sodium Chloride 1,000 ML 999 ML IV (10:30)
--- NOTE | 2023-11-23 10:32 | PC.NURSE ---
IVF administered per provider order. pt still verbalizing feeling dizzy at this time. respirations remain even and unlabored. call abrams placed within reach.
[2023-11-23] MEDS: Meclizine HCl 25 MG TABLET PO (12:23)
== END 2023-11-23 13:23 | disposition home or self-care (01) ==
PROVIDERS: Emergency Provider Emergency Medicine; PCP Internal Medicine
DX: R42 Dizziness and giddiness (principal); E86.0 Dehydration; R20.0 Anesthesia of skin; R51.9 Headache, unspecified; Z11.52 Encounter for screening for COVID-19; Z79.899 Other long term (current) drug therapy; Z87.891 Personal history of nicotine dependence
CPT/HCPCS: 70496; 70498; 80048; 80076; 81001; 81003; 83735; 84484; 85025; 85610; 87635; 93005; 96360; 99284; 99285; Q9967

== ENCOUNTER → 2023-11-23 08:42 | Outpatient (BNV) | payer OTHER, SELFPAY | PROVIDERS: Emergency Provider Emergency Medicine; PCP Internal Medicine; Visit Provider Internal Medicine Cardiovascular Disease | DX: R42 Dizziness and giddiness (principal) | CPT/HCPCS: 93010 ==

== ENCOUNTER → 2023-11-23 23:59 | Outpatient (BNV) | payer OTHER, SELFPAY ==
--- NOTE | 2023-11-25 12:24 | MHC.OFFVIS ---
Intake Intake Visit Reasons: Remote ILR Check- [employer] Allergies epinephrine Adverse Reaction (Verified 11/23/23 08:35) Palpitations PFSH Medical History GERD (gastroesophageal reflux disease) Elevated cholesterol CVA (cerebral vascular accident) Diabetes Surgical History No pertinent past surgical history Family History Mother No problems noted. Father No problems noted. Sister Heart problem Social History Alcohol intake: current Alcohol intake frequency: holidays/special occasions only Patient Tobacco Use Status: Former Tobacco user Quit Date: Smoked in Last 30 Days: No Use of substances other than those prescribed or required for medical reasons: No Advance Directives: Yes Advance Directives Information Provided: No Advance Directives on File: No Patient : No Office Procedures Cardiac Device Check Cardiac Device Check Details: Date of service 11/23/2023; in the current monitoring period, there is no evidence of atrial fibrillation. [id number] Cardiac Interrogation, subcut cardiac rhythm monitor Procedure code (CPT) selection complete Assessment & Plan Assessment & Plan (1) Stroke: Code(s): I63.9 - Cerebral infarction, unspecified Qualifiers: CVA mechanism: unspecified Qualified Code(s): I63.9 - Cerebral infarction, unspecified Plan x Coding Level of Care Code Procedure Only Diagnoses Cerebrovascular accident (CVA), unspecified mechanism I63.9 CVA mechanism: unspecified CPT Codes Cardiac Device Check - Cardiac Device 16: [id number] Cardiac Interrogation, subcut cardiac rhythm monitor ([id number])
== END ==
PROVIDERS: PCP Internal Medicine; Visit Provider Internal Medicine
DX: I63.9 Cerebral infarction, unspecified (principal); Z95.818 Presence of other cardiac implants and grafts
CPT/HCPCS: 93298

== ENCOUNTER → 2023-12-23 23:59 | Outpatient (BNV) | payer OTHER, SELFPAY ==
--- NOTE | 2023-12-25 12:36 | MHC.OFFVIS ---
Intake Intake Visit Reasons: Remote ILR Check- [employer] Allergies epinephrine Adverse Reaction (Verified 11/23/23 08:35) Palpitations PFSH Medical History GERD (gastroesophageal reflux disease) Elevated cholesterol CVA (cerebral vascular accident) Diabetes Surgical History No pertinent past surgical history Family History Mother No problems noted. Father No problems noted. Sister Heart problem Social History Alcohol intake: current Alcohol intake frequency: holidays/special occasions only Patient Tobacco Use Status: Former Tobacco user Quit Date: Smoked in Last 30 Days: No Use of substances other than those prescribed or required for medical reasons: No Advance Directives: Yes Advance Directives Information Provided: No Advance Directives on File: No Patient : No Office Procedures Cardiac Device Check Cardiac Device Check Details: Date of service 12/23/2023; in the current monitoring period, there is no evidence of atrial fibrillation. [id number] Cardiac Interrogation, subcut cardiac rhythm monitor Procedure code (CPT) selection complete Assessment & Plan Assessment & Plan (1) Stroke: Code(s): I63.9 - Cerebral infarction, unspecified Qualifiers: CVA mechanism: unspecified Qualified Code(s): I63.9 - Cerebral infarction, unspecified (2) Implantable loop recorder present: Comment: 09/16/[address] Linda harvey CVA Code(s): Z95.818 - Presence of other cardiac implants and grafts Plan x Coding Level of Care Code Procedure Only Diagnoses Cerebrovascular accident (CVA), unspecified mechanism I63.9 CVA mechanism: unspecified Implantable loop recorder present Z95.818 CPT Codes Cardiac Device Check - Cardiac Device 16: [id number] Cardiac Interrogation, subcut cardiac rhythm monitor ([id number])
== END ==
PROVIDERS: PCP Internal Medicine; Visit Provider Internal Medicine
DX: I63.9 Cerebral infarction, unspecified (principal); Z95.818 Presence of other cardiac implants and grafts
CPT/HCPCS: 93298

== ENCOUNTER → 2024-03-22 23:59 | Outpatient (BNV) | payer OTHER, SELFPAY ==
--- NOTE | 2024-04-06 09:15 | MHC.OFFVIS ---
Intake Visit Reasons: Remote ILR Check- [employer] Allergies epinephrine Adverse Reaction (Verified 11/23/23 08:35) Palpitations PFSH Medical History GERD (gastroesophageal reflux disease) Elevated cholesterol CVA (cerebral vascular accident) Diabetes Surgical History No pertinent past surgical history Family History Mother No problems noted. Father No problems noted. Sister Heart problem Social History Alcohol intake: current Alcohol intake frequency: holidays/special occasions only Patient Tobacco Use Status: Former Tobacco user Office Procedures Cardiac Device Check Cardiac Device Check Details: Date of service 03/22/2024; in the current monitoring period, there is no evidence of atrial fibrillation. 28143-Dodtza Cardiac Interrogation, subcut cardiac rhythm monitor Procedure code (CPT) selection complete Assessment & Plan Assessment & Plan (1) Stroke: Code(s): I63.9 - Cerebral infarction, unspecified Category: Medical Qualifiers: CVA mechanism: unspecified Qualified Code(s): I63.9 - Cerebral infarction, unspecified (2) Implantable loop recorder present: Comment: 09/16/[address] Linda harvey CVA Code(s): Z95.818 - Presence of other cardiac implants and grafts Category: Medical Plan x Coding Level of Care Code Procedure Only Diagnoses Cerebrovascular accident (CVA), unspecified mechanism I63.9 CVA mechanism: unspecified Implantable loop recorder present Z95.818 CPT Codes Cardiac Device Check - Cardiac Device 16: 21643-Wokazx Cardiac Interrogation, subcut cardiac rhythm monitor ([id number])
== END ==
PROVIDERS: PCP Internal Medicine; Visit Provider Internal Medicine
DX: I63.9 Cerebral infarction, unspecified (principal); Z95.818 Presence of other cardiac implants and grafts
CPT/HCPCS: 93298

== ENCOUNTER 2024-03-28 14:29 | Outpatient (AMB) | payer BC, SELFPAY ==
[2024-03-28 14:43] VITALS: BP 120/64; PULSE 107; BMI 27.7
--- NOTE | 2024-03-28 14:43 | A.OFFVIS_ITS ---
Vital Signs 03/28/24 14:43 Height 5 ft 3 in Weight 156 lb 8.451 oz BMI 27.7 BP 120/64 Blood Pressure Location Lt brachial Position Sitting Pulse 107 H Pulse Source Pulse Oximeter Intake Visit Reasons: 6 mth fu Allergies epinephrine Adverse Reaction (Verified 11/23/23 08:35) Palpitations Medication List - Last Reconciled 03/28/24 by Michael Richter MD aspirin (Adult Aspirin Regimen) 81 mg PO DAILY atorvastatin 80 mg PO BEDTIME empagliflozin (Jardiance) 25 mg PO QAM hydrocodone-acetaminophen 5-300 mg 1 tab PO BID PRN lansoprazole 30 mg PO DAILY lisinopril 5 mg PO DAILY lorazepam 1 mg PO BEDTIME PRN metformin 750 mg PO BID semaglutide (Ozempic) 2 mg subcut QWEEK valacyclovir 500 mg PO DAILY HPI Comments Details: Andie returns for follow-up. She was referred by Neurology for evaluation of cardiac source of embolus. She has a history of diabetes, high lipids and she had a stroke in April 2023. Apparently had right facial numbness and went to [facility]. She states she had an echocardiogram including bubble study per her description. That was apparently unremarkable and then she was discharged home. Otherwise, she states she is feeling fine. Does not have any cardiac history like coronary disease. No cardiac symptoms either. She states she was much m ore overweight and in the last year has been losing weight. No new issues. [facility] Medical History GERD (gastroesophageal reflux disease) Elevated cholesterol CVA (cerebral vascular accident) Diabetes Surgical History No pertinent past surgical history Family History Mother No problems noted. Father No problems noted. Sister Heart problem Social History Alcohol intake: current Alcohol intake frequency: holidays/special occasions only Patient Tobacco Use Status: Former Tobacco user Review of Systems Const Denies weakness ENT Denies dizziness Card Denies chest pain, Denies chest pain with activity, Denies syncope, Denies rapid heart rate, Denies pedal edema, Denies edema, Denies leg edema, Denies lightheadedness, Denies palpitations, Denies dyspnea, Denies dyspnea on exertion and Denies orthopnea Resp Denies cough, Denies dyspnea and Denies dyspnea on exertion GI Denies hematochezia and Denies change in stool character Musc Denies abnormal gait, Denies muscle cramps, Denies muscle weakness, Denies numbness, Denies radiating pain into limb and Denies tingling Neuro Denies abnormal gait, Denies dizziness, Denies syncope, Denies numbness, Denies tingling and Denies weakness Endo Denies palpitations Physical Exam Vital Signs: Last Vital Signs Pulse 107 H 03/28/24 14:43 BP 120/64 03/28/24 14:43 BMI result Body Mass Index 27.7 Const General: comfortable and no acute distress Orientation/consciousness: patient oriented x3 HEENT Other: Unremarkable Head: Yes normal to inspection Neck Neck: Yes normal visual inspection Chest Chest palpation & inspection: normal inspection of the chest Resp Auscultation: clear to auscultation bilaterally Cardio Palpation: normal PMI Heart sounds: S1 normal heart sound present, S2 normal heart sound present, no gallops, no murmurs and no rubs GI Palpation (GI): Soft to palpation Back/Spine/Pelvis Other: unremarkable Skin General skin exam: no rashes or lesions noted Neuro General: patient oriented x3 Extrem General: Yes normal to inspection Psych Mental Status: mental status grossly normal Assessment & Plan Assessment & Plan (1) Stroke: Code(s): I63.9 - Cerebral infarction, unspecified Category: Medical Qualifiers: CVA mechanism: unspecified Qualified Code(s): I63.9 - Cerebral infarction, unspecified (2) Type 2 diabetes mellitus with unspecified complications: Code(s): E11.8 - Type 2 diabetes mellitus with unspecified complications Category: Medical (3) Hyperlipidemia, unspecified: Code(s): E78.5 - Hyperlipidemia, unspecified Category: Medical Plan Per neurology note, left acute coronary radiata infarct based on MRI. Echocardiogram from [facility] showed hyperdynamic LVEF, mild LVH and otherwise unremarkable. Bubble study was negative. Transesophageal echocardiogram showed normal LVEF, no evidence of interatrial shunting. Small degree of aortic plaque. Implantable loop recorder in place and that does not show any evidence of atrial fibrillation so far. We will continue to monitor. Otherwise, aggressive risk factor modification including management of diabetes, dyslipidemia. She is on aspirin and high-dose statins. Last hemoglobin A1c is 7.1%. Last LDL cholesterol 43 mg/dL and triglycerides 150 mg/dL. Follow-up in 6 months. We will continue to follow the ILR remotely. Coding Level of Care Code Est Pt Level 4 (68459) Diagnoses Cerebrovascular accident (CVA), unspecified mechanism I63.9 CVA mechanism: unspecified Type 2 diabetes mellitus with unspecified complications E11.8 Hyperlipidemia, unspecified E78.5
== END 2024-03-28 15:06 | disposition home or self-care (01) ==
PROVIDERS: PCP Internal Medicine; Visit Provider Internal Medicine
DX: I63.9 Cerebral infarction, unspecified (principal); E11.8 Type 2 diabetes mellitus with unspecified complications; E78.5 Hyperlipidemia, unspecified
CPT/HCPCS: 99214

== ENCOUNTER → 2024-03-28 14:29 | Outpatient (BNVA) | payer BC, SELFPAY | PROVIDERS: PCP Internal Medicine; Visit Provider Internal Medicine | DX: E78.5 Hyperlipidemia, unspecified (principal); E11.8 Type 2 diabetes mellitus with unspecified complications; Z86.73 Personal history of transient ischemic attack (TIA), and cerebral infarction without residual deficits | CPT/HCPCS: 99212 ==

== ENCOUNTER → 2024-04-21 23:59 | Outpatient (BNV) | payer OTHER, SELFPAY ==
--- NOTE | 2024-06-06 19:12 | MHC.OFFVIS ---
Intake Visit Reasons: Remote ILR check- [employer] Allergies epinephrine Adverse Reaction (Verified 11/23/23 08:35) Palpitations PFSH Medical History GERD (gastroesophageal reflux disease) Elevated cholesterol CVA (cerebral vascular accident) Diabetes Surgical History No pertinent past surgical history Family History Mother No problems noted. Father No problems noted. Sister Heart problem Social History Alcohol intake: current Alcohol intake frequency: holidays/special occasions only Patient Tobacco Use Status: Former Tobacco user Office Procedures Cardiac Device Check Cardiac Device Check Details: Date of service 04/21/2024; in the current monitoring period, there is no evidence of atrial fibrillation. 46144-Jhlnft Cardiac Interrogation, subcut cardiac rhythm monitor Procedure code (CPT) selection complete Assessment & Plan Assessment & Plan (1) Stroke: Code(s): I63.9 - Cerebral infarction, unspecified Category: Medical Qualifiers: CVA mechanism: unspecified Qualified Code(s): I63.9 - Cerebral infarction, unspecified Plan x Coding Level of Care Code Procedure Only Diagnoses Cerebrovascular accident (CVA), unspecified mechanism I63.9 CVA mechanism: unspecified CPT Codes Cardiac Device Check - Cardiac Device 16: 02810-Iagzqx Cardiac Interrogation, subcut cardiac rhythm monitor ([id number])
== END ==
PROVIDERS: PCP Internal Medicine; Visit Provider Internal Medicine
DX: I63.9 Cerebral infarction, unspecified (principal); Z95.818 Presence of other cardiac implants and grafts
CPT/HCPCS: 93298

== ENCOUNTER → 2024-05-21 23:59 | Outpatient (BNV) | payer OTHER, SELFPAY ==
--- NOTE | 2024-06-06 19:10 | MHC.OFFVIS ---
Intake Visit Reasons: Remote ILR check- [employer] Allergies epinephrine Adverse Reaction (Verified 11/23/23 08:35) Palpitations PFSH Medical History GERD (gastroesophageal reflux disease) Elevated cholesterol CVA (cerebral vascular accident) Diabetes Surgical History No pertinent past surgical history Family History Mother No problems noted. Father No problems noted. Sister Heart problem Social History Alcohol intake: current Alcohol intake frequency: holidays/special occasions only Patient Tobacco Use Status: Former Tobacco user Office Procedures Cardiac Device Check Cardiac Device Check Details: Date of service 05/21/2024; in the current monitoring period, there is no evidence of atrial fibrillation. 71958-Tgryxz Cardiac Interrogation, subcut cardiac rhythm monitor Procedure code (CPT) selection complete Assessment & Plan Assessment & Plan (1) Stroke: Code(s): I63.9 - Cerebral infarction, unspecified Category: Medical Qualifiers: CVA mechanism: unspecified Qualified Code(s): I63.9 - Cerebral infarction, unspecified Plan x Coding Level of Care Code Procedure Only Diagnoses Cerebrovascular accident (CVA), unspecified mechanism I63.9 CVA mechanism: unspecified CPT Codes Cardiac Device Check - Cardiac Device 16: 21824-Hdytme Cardiac Interrogation, subcut cardiac rhythm monitor ([id number])
== END ==
PROVIDERS: PCP Internal Medicine; Visit Provider Internal Medicine
DX: I63.9 Cerebral infarction, unspecified (principal); Z95.818 Presence of other cardiac implants and grafts
CPT/HCPCS: 93298

== ENCOUNTER → 2024-06-20 23:59 | Outpatient (BNV) | payer BC, SELFPAY ==
--- NOTE | 2024-06-30 09:45 | MHC.OFFVIS ---
Intake Visit Reasons: Remote ILR check- [employer] Allergies epinephrine Adverse Reaction (Verified 11/23/23 08:35) Palpitations PFSH Medical History GERD (gastroesophageal reflux disease) Elevated cholesterol CVA (cerebral vascular accident) Diabetes Surgical History No pertinent past surgical history Family History Mother No problems noted. Father No problems noted. Sister Heart problem Social History Alcohol intake: current Alcohol intake frequency: holidays/special occasions only Patient Tobacco Use Status: Former Tobacco user Office Procedures Cardiac Device Check Cardiac Device Check Details: Date of service 06/20/2024; in the current monitoring period, there is no evidence of atrial fibrillation. 49135-Vrildr Cardiac Interrogation, subcut cardiac rhythm monitor Procedure code (CPT) selection complete Assessment & Plan Assessment & Plan (1) Stroke: Code(s): I63.9 - Cerebral infarction, unspecified Category: Medical Qualifiers: CVA mechanism: unspecified Qualified Code(s): I63.9 - Cerebral infarction, unspecified (2) Implantable loop recorder present: Comment: 09/16/[address] Linda harvey CVA Code(s): Z95.818 - Presence of other cardiac implants and grafts Category: Medical Plan X Coding Level of Care Code Procedure Only Diagnoses Cerebrovascular accident (CVA), unspecified mechanism I63.9 CVA mechanism: unspecified Implantable loop recorder present Z95.818 CPT Codes Cardiac Device Check - Cardiac Device 16: 05429-Fmbadu Cardiac Interrogation, subcut cardiac rhythm monitor ([id number])
== END ==
PROVIDERS: PCP Internal Medicine; Visit Provider Internal Medicine
DX: I63.9 Cerebral infarction, unspecified (principal); Z95.818 Presence of other cardiac implants and grafts
CPT/HCPCS: 93298

== ENCOUNTER → 2024-07-20 23:59 | Outpatient (BNV) | payer OTHER, SELFPAY ==
--- NOTE | 2024-07-31 18:49 | MHC.OFFVIS ---
Intake Visit Reasons: Remote ILR check- [employer] Allergies epinephrine Adverse Reaction (Verified 11/23/23 08:35) Palpitations PFSH Medical History GERD (gastroesophageal reflux disease) Elevated cholesterol CVA (cerebral vascular accident) Diabetes Surgical History No pertinent past surgical history Family History Mother No problems noted. Father No problems noted. Sister Heart problem Social History Alcohol intake: current Alcohol intake frequency: holidays/special occasions only Patient Tobacco Use Status: Former Tobacco user Office Procedures Cardiac Device Check Cardiac Device Check Details: Date of service 07/20/2024; in the current monitoring period, there is no evidence of atrial fibrillation. 46516-Vaycod Cardiac Interrogation, subcut cardiac rhythm monitor Procedure code (CPT) selection complete Assessment & Plan Assessment & Plan (1) Implantable loop recorder present: Comment: 09/16/[address] Linda harvey CVA Code(s): Z95.818 - Presence of other cardiac implants and grafts Category: Medical (2) Stroke: Code(s): I63.9 - Cerebral infarction, unspecified Category: Medical Qualifiers: CVA mechanism: unspecified Qualified Code(s): I63.9 - Cerebral infarction, unspecified Plan x Coding Level of Care Code Procedure Only Diagnoses Implantable loop recorder present Z95.818 Cerebrovascular accident (CVA), unspecified mechanism I63.9 CVA mechanism: unspecified CPT Codes Cardiac Device Check - Cardiac Device 16: 04935-Irmyot Cardiac Interrogation, subcut cardiac rhythm monitor ([id number])
== END ==
PROVIDERS: PCP Internal Medicine; Visit Provider Internal Medicine
DX: I63.9 Cerebral infarction, unspecified (principal); Z95.818 Presence of other cardiac implants and grafts
CPT/HCPCS: 93298

== ENCOUNTER → 2024-08-19 23:59 | Outpatient (BNV) | payer OTHER, SELFPAY ==
--- NOTE | 2024-08-25 12:27 | MHC.OFFVIS ---
Intake Visit Reasons: Remote ILR monitoring- [employer] Allergies epinephrine Adverse Reaction (Verified 11/23/23 08:35) Palpitations PFSH Medical History GERD (gastroesophageal reflux disease) Elevated cholesterol CVA (cerebral vascular accident) Diabetes Surgical History No pertinent past surgical history Family History Mother No problems noted. Father No problems noted. Sister Heart problem Social History Alcohol intake: current Alcohol intake frequency: holidays/special occasions only Patient Tobacco Use Status: Former Tobacco user Office Procedures Cardiac Device Check Cardiac Device Check Details: Date of service 08/19/2024; in the current monitoring period, there is no evidence of atrial fibrillation. 90051-Jftmft Cardiac Interrogation, subcut cardiac rhythm monitor Procedure code (CPT) selection complete Assessment & Plan Assessment & Plan (1) Implantable loop recorder present: Comment: 09/16/[address] Linda harvey CVA Code(s): Z95.818 - Presence of other cardiac implants and grafts Category: Medical (2) Stroke: Code(s): I63.9 - Cerebral infarction, unspecified Category: Medical Qualifiers: CVA mechanism: unspecified Qualified Code(s): I63.9 - Cerebral infarction, unspecified Plan x Coding Level of Care Code Procedure Only Diagnoses Implantable loop recorder present Z95.818 Cerebrovascular accident (CVA), unspecified mechanism I63.9 CVA mechanism: unspecified CPT Codes Cardiac Device Check - Cardiac Device 16: 43240-Qntbno Cardiac Interrogation, subcut cardiac rhythm monitor ([id number])
== END ==
PROVIDERS: PCP Internal Medicine; Visit Provider Internal Medicine
DX: I63.9 Cerebral infarction, unspecified (principal); Z95.818 Presence of other cardiac implants and grafts
CPT/HCPCS: 93298

== ENCOUNTER → 2024-09-18 23:59 | Outpatient (BNV) | payer BC, SELFPAY ==
--- NOTE | 2024-09-25 10:09 | MHC.OFFVIS ---
Intake Visit Reasons: Remote ILR check-[employer] Allergies epinephrine Adverse Reaction (Verified 11/23/23 08:35) Palpitations PFSH Medical History GERD (gastroesophageal reflux disease) Elevated cholesterol CVA (cerebral vascular accident) Diabetes Surgical History No pertinent past surgical history Family History Mother No problems noted. Father No problems noted. Sister Heart problem Social History Alcohol intake: current Alcohol intake frequency: holidays/special occasions only Patient Tobacco Use Status: Former Tobacco user Office Procedures Cardiac Device Check Cardiac Device Check Details: Date of service 09/18/2024; in the current monitoring period, there is no evidence of atrial fibrillation. 98407-Ibzboi Cardiac Interrogation, subcut cardiac rhythm monitor Procedure code (CPT) selection complete Assessment & Plan Assessment & Plan (1) Implantable loop recorder present: Comment: 09/16/[address] Linda harvey CVA Code(s): Z95.818 - Presence of other cardiac implants and grafts Category: Medical (2) Stroke: Code(s): I63.9 - Cerebral infarction, unspecified Category: Medical Qualifiers: CVA mechanism: unspecified Qualified Code(s): I63.9 - Cerebral infarction, unspecified Plan x Coding Level of Care Code Procedure Only Diagnoses Implantable loop recorder present Z95.818 Cerebrovascular accident (CVA), unspecified mechanism I63.9 CVA mechanism: unspecified CPT Codes Cardiac Device Check - Cardiac Device 16: 60421-Ghzxtg Cardiac Interrogation, subcut cardiac rhythm monitor ([id number])
== END ==
PROVIDERS: PCP Internal Medicine; Visit Provider Internal Medicine
DX: I63.9 Cerebral infarction, unspecified (principal); Z95.818 Presence of other cardiac implants and grafts
CPT/HCPCS: 93298

== ENCOUNTER → 2024-10-18 23:59 | Outpatient (BNV) | payer BC, SELFPAY ==
--- NOTE | 2024-10-26 18:56 | MHC.OFFVIS ---
Intake Visit Reasons: Remote ILR check-[employer] Allergies epinephrine Adverse Reaction (Verified 11/23/23 08:35) Palpitations PFSH Medical History GERD (gastroesophageal reflux disease) Elevated cholesterol CVA (cerebral vascular accident) Diabetes Surgical History No pertinent past surgical history Family History Mother No problems noted. Father No problems noted. Sister Heart problem Social History Alcohol intake: current Alcohol intake frequency: holidays/special occasions only Patient Tobacco Use Status: Former Tobacco user Office Procedures Cardiac Device Check Cardiac Device Check Details: Date of service 10/18/2024; in the current monitoring period, there is no evidence of atrial fibrillation. 50054-Lpayxp Cardiac Interrogation, subcut cardiac rhythm monitor Procedure code (CPT) selection complete Assessment & Plan Assessment & Plan (1) Implantable loop recorder present: Comment: 09/16/[address] Linda harvey CVA Code(s): Z95.818 - Presence of other cardiac implants and grafts Category: Medical (2) Stroke: Code(s): I63.9 - Cerebral infarction, unspecified Category: Medical Qualifiers: CVA mechanism: unspecified Qualified Code(s): I63.9 - Cerebral infarction, unspecified Plan x Coding Level of Care Code Procedure Only Diagnoses Implantable loop recorder present Z95.818 Cerebrovascular accident (CVA), unspecified mechanism I63.9 CVA mechanism: unspecified CPT Codes Cardiac Device Check - Cardiac Device 16: 31662-Ixtiix Cardiac Interrogation, subcut cardiac rhythm monitor ([id number])
== END ==
PROVIDERS: PCP Internal Medicine; Visit Provider Internal Medicine
DX: I63.9 Cerebral infarction, unspecified (principal); Z95.818 Presence of other cardiac implants and grafts
CPT/HCPCS: 93298

== ENCOUNTER 2024-11-07 14:01 | Outpatient (AMB) | payer OTHER, SELFPAY ==
[2024-11-07 14:24] VITALS: BP 110/60; PULSE 102; BMI 27.6
--- NOTE | 2024-11-07 14:24 | MHC.OFFVIS ---
Vital Signs 11/07/24 14:24 Height 5 ft 3 in Weight 155 lb 10.342 oz BMI 27.6 BP 110/60 Blood Pressure Location Lt brachial Position Sitting Pulse 102 H Intake Visit Reasons: 6mth fu Shellac Polisher Required: No Accompanied by: Self / Same As Patient Allergies epinephrine Adverse Reaction (Verified 11/23/23 08:35) Palpitations Medication List - Last Reconciled 11/07/24 by Michael Richter MD aspirin (Adult Aspirin Regimen) 81 mg PO DAILY atorvastatin 80 mg PO BEDTIME empagliflozin (Jardiance) 25 mg PO QAM hydrocodone-acetaminophen 5-300 mg 1 tab PO BID PRN lansoprazole 30 mg PO DAILY lisinopril 5 mg PO DAILY lorazepam 1 mg PO BEDTIME PRN metformin 750 mg PO BID semaglutide (Ozempic) 2 mg subcut QWEEK valacyclovir 500 mg PO DAILY HPI Comments Details: Andie returns for follow-up. She was previously referred by Neurology for evaluation of cardiac source of embolus. She has a history of diabetes, high lipids and she had a stroke in April 2023. Apparently had right facial numbness and went to [facility]. She states she had an echocardiogram including bubble study per her description. That was apparently unremarkable and then she was discharged home. Overall, she is feeling good. No new complaints. No cardiac symptoms whatsoever. [facility] Medical History GERD (gastroesophageal reflux disease) Elevated cholesterol CVA (cerebral vascular accident) Diabetes Surgical History No pertinent past surgical history Family History Mother No problems noted. Father No problems noted. Sister Heart problem Social History Alcohol intake: current Alcohol intake frequency: holidays/special occasions only Patient Tobacco Use Status: Former Tobacco user Review of Systems Const Denies chills, Denies fatigue, Denies fever(s), Denies weight gain and Denies weight loss ENT Denies dizziness Card Denies chest pain, Denies leg edema, Denies lightheadedness, Denies palpitations, Denies dyspnea on exertion, Denies orthopnea and Denies other Resp Denies cough and Denies dyspnea on exertion GI Denies hematochezia and Denies change in stool character Musc Denies abnormal gait, Denies muscle weakness, Denies numbness, Denies radiating pain into limb and Denies tingling Neuro Denies abnormal gait, Denies dizziness, Denies numbness and Denies tingling Endo Denies fatigue and Denies palpitations Physical Exam Vital Signs: Last Vital Signs Pulse 102 H 11/07/24 14:24 BP 110/60 11/07/24 14:24 BMI result Body Mass Index 27.6 Const General: comfortable and no acute distress Orientation/consciousness: patient oriented x3 HEENT Other: Unremarkable Head: Yes normal to inspection Neck Neck: Yes normal visual inspection Chest Chest palpation & inspection: normal inspection of the chest Resp Auscultation: clear to auscultation bilaterally Cardio Palpation: normal PMI Heart sounds: S1 normal heart sound present, S2 normal heart sound present, no gallops, no murmurs and no rubs GI Palpation (GI): Soft to palpation Back/Spine/Pelvis Other: unremarkable Skin General skin exam: no rashes or lesions noted Neuro General: patient oriented x3 Extrem General: Yes normal to inspection Psych Mental Status: mental status grossly normal Office Procedures EKG Details: EKG with underlying sinus tachycardia at 01:02/Min; no significant ST-T changes and otherwise unremarkable[place]. [address]-[id number], Complete Assessment & Plan Assessment & Plan (1) Stroke: Code(s): I63.9 - Cerebral infarction, unspecified Category: Medical Qualifiers: CVA mechanism: unspecified Qualified Code(s): I63.9 - Cerebral infarction, unspecified (2) Type 2 diabetes mellitus with unspecified complications: Code(s): E11.8 - Type 2 diabetes mellitus with unspecified complications Category: Medical (3) Hyperlipidemia, unspecified: Code(s): E78.5 - Hyperlipidemia, unspecified Category: Medical Plan Per neurology note, left acute coronary radiata infarct based on MRI. Echocardiogram from [facility] showed hyperdynamic LVEF, mild LVH and otherwise unremarkable. Bubble study was negative. Transesophageal echocardiogram showed normal LVEF, no evidence of interatrial shunting. Small degree of aortic plaque. Implantable loop recorder in place and that does not show any evidence of atrial fibrillation so far. Otherwise, aggressive risk factor modification including management of diabetes, dyslipidemia. She is on aspirin and high-dose statins. Last hemoglobin A1c is 6.4%. Last LDL cholesterol 43 mg/dL and triglycerides 150 mg/dL. We can continue to follow the ILR remotely. Follow-up otherwise in clinic in 6 months. Coding Level of Care Code Est Pt Level 3 (70796) Diagnoses Cerebrovascular accident (CVA), unspecified mechanism I63.9 CVA mechanism: unspecified Type 2 diabetes mellitus with unspecified complications E11.8 Hyperlipidemia, unspecified E78.5 CPT Codes EKG - CPT: 84575-Yutlfylitjyhchuwu, Complete ([id number])
--- OUTSIDE RECORDS SUMMARY | 2024-11-07 18:31 | XMS_ITS | Clinical Summary ---
Author Organization [facility] Address [address] [place] [address] Care Team Providers Care Chronic Specialist Name Role Phone Valeriano Carlos MD Primary Care Provider [phone] Social History Tobacco Use Types Packs/Day Years Used Date Smoking Tobacco: Never Assessed Sex and Gender Information Value Date Recorded Sex Assigned at Not on file Gender Identity Not on file Sexual Orientation Not on file Plan of Treatment Health Maintenance Due Date Last Done Comments Breast Cancer Screening 1971 DTaP,Tdap,and Td Vaccines (1 - Tdap) 1990 Hepatitis B Vaccines (1 of 3 - 19+ 3-dose series) 1990 Cervical Cancer Screening: P ap Smear 1992 Zoster Vaccines (1 of 2) 2021 Colorectal Cancer Screening: Colonoscopy 11/06/2023 Depression Screening 11/06/2023 HIV Screening 11/06/2023 Hepatitis C Screening 11/06/2023 Social Influencers of Health Screening 11/06/2023 COVID-19 Vaccine (2023-2 5 season) 2024 Influenza Vaccine (#1) 2024 HIB Vaccines Aged Out No longer eligi ble based on patient's age to complete this topic HPV Vaccines Aged Out No longer eligi ble based on patient's age to complete this topic Hepatitis A Vaccines Aged Out No long er eligible based on patient's age to complete this topic IPV Vaccines Aged Out No longer eligi ble based on patient's age to complete this topic MMR Vaccines Aged Out No longer eligi ble based on patient's age to complete this topic Meningococcal ACWY Vaccine Aged Out N o longer eligible based on patient's age to complete this topic Pneumococcal Vaccine: Pediat rics (0 to 5 Years) and At-Risk Patients (6 to 64 Years) Aged Out No longer eligible b ased on patient's age to complete this topic RSV Immunization Patients Un nadir 20 months Aged Out No longer eligible b ased on patient's age to complete this topic Varicella Vaccines Aged Out No longer eligible based on patient's age to complete this topic Care Teams Chronic Specialist Relationship Specialty Start Date End Date Valeriano Carlos MD PCP - General 05/13/23
--- OUTSIDE RECORDS SUMMARY | 2024-11-07 18:31 | XMS_ITS | Clinical Summary ---
Author Organization [facility] Address [address] [place] [address] Care Team Providers Care Event Manager Name Role Phone Robert Cuello Primary Care Provider Allergies No known active allergies Medications LORazepam 1 MG Tab 1 TABLET TWICE DAILY Active metFORMIN HCl 1000 MG Tab 1 TABLET TWICE DAILY WITH FOOD Active Lisinopril 5 MG Tab 1 TABLET DAILY Active Simvastatin 20 MG Tab 1 TABLET AT BEDTIME Active Dulaglutide (TRULICITY) 0.75 MG/0.5ML Solution Pen-injector once a week Activ e Levonorgestrel (LILETTA, 52 MG,) 19.5 MCG/DAY IUD None Entered Activ e ACETAMINOPHEN-C AFF-BUTALBITAL 50-325-40 MG Cap None Entered 03/10/2019 Active Carisoprodol 350 MG Tab None Entered 03/08/2019 Activ e Ibuprofen 600 MG Tab None Entered 05/05/2019 Active Lansoprazole 30 MG CAPSULE DELAYED RELEASE None Entered 06/02/2019 Active Active Problems No known active problems Social History Tobacco Use Types Packs/Day Years Used Date Smoking Tobacco: Every Day Smokeless Tobacco: Never Comments No Sex and Gender Information Value Date Recorded Sex Assigned at Not on file Legal Sex Female 3:38 PM EDT Gender Identity Not on file Sexual Orientation Not on file Last Filed Vital Signs Vital Sign Reading Time Taken Comments Blood Pressure 127/82 06/25/2019 3:48 PM EDT Pulse 85 06/25/2019 3:48 PM EDT Temperature 37.2 ??C (98.9 ??F) 06/25/2019 3:48 PM ED T Respiratory Rate 18 06/25/2019 3:48 PM EDT Oxygen Saturation 98% 06/25/2019 3:48 PM EDT Inhaled Oxygen Concentration - - Weight - - Height - - Body Mass Index - - Plan of Treatment Health Maintenance Due Date Last Done Comments Hepatitis C Screening 1971 Pap Smear 1987 DTaP/Tdap/Td (1 - Tdap) 1989 Hep B (1 of 3 - 19+ 3-dose series) 1990 Mammogram/Breast Imaging 2011 Pneumococcal 50+ years (1 of 1 - PCV) 2021 Zoster (Shingrix) (1 of 2) 2021 COVID-19 Vaccine ( - 2023-2 5 season) 2024 Influenza (#1) 2024 HPV Vaccine Aged Out No longer eligi ble based on patient's age to complete this topic Hep A Aged Out No longer eligi ble based on patient's age to complete this topic Hib Aged Out No longer eligi ble based on patient's age to complete this topic Meningococcal ACWY Aged Out No longer eligible based on patient's age to complete this topic Insurance * Guarantor: ANDIE GIL Account Type Relation to Patient Date of Phone Billing Address Personal/Family [address] [place] [id number] [facility] HMO/HMO ADVANTAGE Care Teams Event Manager Relationship Specialty Start Date End Date Robert Cuello [facility] [address] [place] [id number] PCP - General Internal Medicine 06/25/19
== END 2024-11-07 15:00 | disposition home or self-care (01) ==
PROVIDERS: PCP Internal Medicine; Visit Provider Internal Medicine
DX: I63.9 Cerebral infarction, unspecified (principal); E11.8 Type 2 diabetes mellitus with unspecified complications; E78.5 Hyperlipidemia, unspecified
CPT/HCPCS: 93010; 99213

== ENCOUNTER → 2024-11-07 14:01 | Outpatient (BNVA) | payer BC, SELFPAY | PROVIDERS: PCP Internal Medicine; Visit Provider Internal Medicine | DX: E78.5 Hyperlipidemia, unspecified (principal); E11.8 Type 2 diabetes mellitus with unspecified complications; Z86.73 Personal history of transient ischemic attack (TIA), and cerebral infarction without residual deficits; Z79.82 Long term (current) use of aspirin; Z79.899 Other long term (current) drug therapy | CPT/HCPCS: 93005; 99212 ==

== ENCOUNTER → 2024-11-17 23:59 | Outpatient (BNV) | payer OTHER, SELFPAY ==
--- NOTE | 2024-11-21 09:20 | MHC.OFFVIS ---
Intake Visit Reasons: Remote ILR check-[employer] Allergies epinephrine Adverse Reaction (Verified 11/23/23 08:35) Palpitations PFSH Medical History GERD (gastroesophageal reflux disease) Elevated cholesterol CVA (cerebral vascular accident) Diabetes Surgical History No pertinent past surgical history Family History Mother No problems noted. Father No problems noted. Sister Heart problem Social History Alcohol intake: current Alcohol intake frequency: holidays/special occasions only Patient Tobacco Use Status: Former Tobacco user Office Procedures Cardiac Device Check Cardiac Device Check Details: Date of service 11/17/2024; in the current monitoring period, there is no evidence of atrial fibrillation or other concerning arrhythmias. [id number] Cardiac Interrogation, subcut cardiac rhythm monitor Procedure code (CPT) selection complete Assessment & Plan Assessment & Plan (1) Implantable loop recorder present: Comment: 09/16/[address] Linda harvey CVA Code(s): Z95.818 - Presence of other cardiac implants and grafts Category: Medical (2) Stroke: Code(s): I63.9 - Cerebral infarction, unspecified Category: Medical Qualifiers: CVA mechanism: unspecified Qualified Code(s): I63.9 - Cerebral infarction, unspecified Plan x Coding Level of Care Code Procedure Only Diagnoses Implantable loop recorder present Z95.818 Cerebrovascular accident (CVA), unspecified mechanism I63.9 CVA mechanism: unspecified CPT Codes Cardiac Device Check - Cardiac Device 16: [id number]-Pwsnjc Cardiac Interrogation, subcut cardiac rhythm monitor ([id number])
== END ==
PROVIDERS: PCP Internal Medicine; Visit Provider Internal Medicine
DX: I63.9 Cerebral infarction, unspecified (principal); Z95.818 Presence of other cardiac implants and grafts
CPT/HCPCS: 93298

== ENCOUNTER → 2024-12-17 23:59 | Outpatient (BNV) | payer OTHER, SELFPAY ==
--- NOTE | 2024-12-25 11:04 | MHC.OFFVIS ---
Intake Visit Reasons: Remote ILR check-[employer] Allergies epinephrine Adverse Reaction (Verified 11/23/23 08:35) Palpitations PFSH Medical History GERD (gastroesophageal reflux disease) Elevated cholesterol CVA (cerebral vascular accident) Diabetes Surgical History No pertinent past surgical history Family History Mother No problems noted. Father No problems noted. Sister Heart problem Social History Alcohol intake: current Alcohol intake frequency: holidays/special occasions only Patient Tobacco Use Status: Former Tobacco user Office Procedures Cardiac Device Check Cardiac Device Check Details: Date of service 12/17/2024; in the current monitoring period, there is no evidence of atrial fibrillation. 20014-Wovtfh Cardiac Interrogation, subcut cardiac rhythm monitor Procedure code (CPT) selection complete Assessment & Plan Assessment & Plan (1) Implantable loop recorder present: Comment: 09/16/[address] Linda harvey CVA Code(s): Z95.818 - Presence of other cardiac implants and grafts Category: Medical (2) Stroke: Code(s): I63.9 - Cerebral infarction, unspecified Category: Medical Qualifiers: CVA mechanism: unspecified Qualified Code(s): I63.9 - Cerebral infarction, unspecified Plan x Coding Level of Care Code Procedure Only Diagnoses Implantable loop recorder present Z95.818 Cerebrovascular accident (CVA), unspecified mechanism I63.9 CVA mechanism: unspecified CPT Codes Cardiac Device Check - Cardiac Device 16: 41944-Alrgqf Cardiac Interrogation, subcut cardiac rhythm monitor ([id number])
== END ==
PROVIDERS: PCP Internal Medicine; Visit Provider Internal Medicine
DX: I63.9 Cerebral infarction, unspecified (principal); Z95.818 Presence of other cardiac implants and grafts
CPT/HCPCS: 93298

== ENCOUNTER → 2025-01-16 23:59 | Outpatient (BNV) | payer OTHER, SELFPAY ==
--- NOTE | 2025-01-24 11:25 | MHC.OFFVIS ---
Intake Visit Reasons: Remote ILR check- [employer] Allergies epinephrine Adverse Reaction (Verified 11/23/23 08:35) Palpitations PFSH Medical History GERD (gastroesophageal reflux disease) Elevated cholesterol CVA (cerebral vascular accident) Diabetes Surgical History No pertinent past surgical history Family History Mother No problems noted. Father No problems noted. Sister Heart problem Social History Alcohol intake: current Alcohol intake frequency: holidays/special occasions only Patient Tobacco Use Status: Former Tobacco user Office Procedures Cardiac Device Check Cardiac Device Check Details: Date of service 01/16/2025; in the current monitoring period, there is no evidence of atrial fibrillation. PVC 0.1%. 26686-Ljbcxy Cardiac Interrogation, subcut cardiac rhythm monitor Procedure code (CPT) selection complete Assessment & Plan Assessment & Plan (1) Implantable loop recorder present: Comment: 09/16/[address] Linda harvey CVA Code(s): Z95.818 - Presence of other cardiac implants and grafts Category: Medical (2) Stroke: Code(s): I63.9 - Cerebral infarction, unspecified Category: Medical Qualifiers: CVA mechanism: unspecified Qualified Code(s): I63.9 - Cerebral infarction, unspecified Plan x Coding Level of Care Code Procedure Only Diagnoses Implantable loop recorder present Z95.818 Cerebrovascular accident (CVA), unspecified mechanism I63.9 CVA mechanism: unspecified CPT Codes Cardiac Device Check - Cardiac Device 16: 41234-Mcyozo Cardiac Interrogation, subcut cardiac rhythm monitor ([id number])
== END ==
PROVIDERS: PCP Internal Medicine; Visit Provider Internal Medicine
DX: I63.9 Cerebral infarction, unspecified (principal); Z95.818 Presence of other cardiac implants and grafts
CPT/HCPCS: 93298

== ENCOUNTER → 2025-02-15 23:59 | Outpatient (BNV) | payer OTHER, SELFPAY ==
--- NOTE | 2025-02-23 08:51 | MHC.OFFVIS ---
Intake Visit Reasons: Remote ILR check- [employer] Allergies epinephrine Adverse Reaction (Verified 11/23/23 08:35) Palpitations PFSH Medical History GERD (gastroesophageal reflux disease) Elevated cholesterol CVA (cerebral vascular accident) Diabetes Surgical History No pertinent past surgical history Family History Mother No problems noted. Father No problems noted. Sister Heart problem Social History Alcohol intake: current Alcohol intake frequency: holidays/special occasions only Patient Tobacco Use Status: Former Tobacco user Office Procedures Cardiac Device Check Cardiac Device Check Details: Date of service 02/15/2025; in the current monitoring period, there is no evidence of atrial fibrillation. 87881-Kjjqhe Cardiac Interrogation, subcut cardiac rhythm monitor Procedure code (CPT) selection complete Assessment & Plan Assessment & Plan (1) Implantable loop recorder present: Comment: 09/16/[address] Linda harvey CVA Code(s): Z95.818 - Presence of other cardiac implants and grafts Category: Medical (2) Stroke: Code(s): I63.9 - Cerebral infarction, unspecified Category: Medical Qualifiers: CVA mechanism: unspecified Qualified Code(s): I63.9 - Cerebral infarction, unspecified Plan x Coding Level of Care Code Procedure Only Diagnoses Implantable loop recorder present Z95.818 Cerebrovascular accident (CVA), unspecified mechanism I63.9 CVA mechanism: unspecified CPT Codes Cardiac Device Check - Cardiac Device 16: 63938-Acmtgn Cardiac Interrogation, subcut cardiac rhythm monitor ([id number])
== END ==
PROVIDERS: PCP Internal Medicine; Visit Provider Internal Medicine
DX: I63.9 Cerebral infarction, unspecified (principal); Z95.818 Presence of other cardiac implants and grafts
CPT/HCPCS: 93298

== ENCOUNTER → 2025-03-17 23:59 | Outpatient (BNV) | payer OTHER, SELFPAY ==
--- NOTE | 2025-03-23 10:08 | MHC.OFFVIS ---
Intake Visit Reasons: Remote ILR check- [employer] Allergies epinephrine Adverse Reaction (Verified 11/23/23 08:35) Palpitations PFSH Medical History GERD (gastroesophageal reflux disease) Elevated cholesterol CVA (cerebral vascular accident) Diabetes Surgical History No pertinent past surgical history Family History Mother No problems noted. Father No problems noted. Sister Heart problem Social History Alcohol intake: current Alcohol intake frequency: holidays/special occasions only Patient Tobacco Use Status: Former Tobacco user Office Procedures Cardiac Device Check Cardiac Device Check Details: Date of service 03/17/2025; in the current monitoring period, there is no evidence of atrial fibrillation. 48110-Evjanu Cardiac Interrogation, subcut cardiac rhythm monitor Procedure code (CPT) selection complete Assessment & Plan Assessment & Plan (1) Implantable loop recorder present: Comment: 09/16/[address] Linda harvey CVA Code(s): Z95.818 - Presence of other cardiac implants and grafts Category: Medical (2) Stroke: Code(s): I63.9 - Cerebral infarction, unspecified Category: Medical Qualifiers: CVA mechanism: unspecified Qualified Code(s): I63.9 - Cerebral infarction, unspecified Plan x Coding Level of Care Code Procedure Only Diagnoses Implantable loop recorder present Z95.818 Cerebrovascular accident (CVA), unspecified mechanism I63.9 CVA mechanism: unspecified CPT Codes Cardiac Device Check - Cardiac Device 16: 66340-Bcaxvm Cardiac Interrogation, subcut cardiac rhythm monitor ([id number])
== END ==
PROVIDERS: PCP Internal Medicine; Visit Provider Internal Medicine
DX: I63.9 Cerebral infarction, unspecified (principal); Z95.818 Presence of other cardiac implants and grafts
CPT/HCPCS: 93298

== ENCOUNTER → 2025-04-16 23:59 | Outpatient (BNV) | payer OTHER, SELFPAY ==
--- NOTE | 2025-04-25 20:49 | MHC.OFFVIS ---
Intake Visit Reasons: Remote ILR check- [employer] Allergies epinephrine Adverse Reaction (Verified 11/23/23 08:35) Palpitations PFSH Medical History GERD (gastroesophageal reflux disease) Elevated cholesterol CVA (cerebral vascular accident) Diabetes Surgical History No pertinent past surgical history Family History Mother No problems noted. Father No problems noted. Sister Heart problem Social History Alcohol intake: current Alcohol intake frequency: holidays/special occasions only Patient Tobacco Use Status: Former Tobacco user Office Procedures Cardiac Device Check Cardiac Device Check Details: Date of service 04/16/2025; in the current monitoring period, there is no evidence of atrial fibrillation. 23881-Nqnzvw Cardiac Interrogation, subcut cardiac rhythm monitor Procedure code (CPT) selection complete Assessment & Plan Assessment & Plan (1) Implantable loop recorder present: Comment: 09/16/[address] Linda harvey CVA Code(s): Z95.818 - Presence of other cardiac implants and grafts Category: Medical (2) Stroke: Code(s): I63.9 - Cerebral infarction, unspecified Category: Medical Qualifiers: CVA mechanism: unspecified Qualified Code(s): I63.9 - Cerebral infarction, unspecified Plan x Coding Level of Care Code Procedure Only Diagnoses Implantable loop recorder present Z95.818 Cerebrovascular accident (CVA), unspecified mechanism I63.9 CVA mechanism: unspecified CPT Codes Cardiac Device Check - Cardiac Device 16: 29315-Xrzmdo Cardiac Interrogation, subcut cardiac rhythm monitor ([id number])
== END ==
PROVIDERS: PCP Internal Medicine; Visit Provider Internal Medicine
DX: I63.9 Cerebral infarction, unspecified (principal); Z95.818 Presence of other cardiac implants and grafts
CPT/HCPCS: 93298

== ENCOUNTER → 2025-05-16 23:59 | Outpatient (BNV) | payer BC, SELFPAY ==
--- NOTE | 2025-05-24 20:19 | MHC.OFFVIS ---
Intake Visit Reasons: Remote ILR check- [employer] Allergies epinephrine Adverse Reaction (Verified 11/23/23 08:35) Palpitations PFSH Medical History GERD (gastroesophageal reflux disease) Elevated cholesterol CVA (cerebral vascular accident) Diabetes Surgical History No pertinent past surgical history Family History Mother No problems noted. Father No problems noted. Sister Heart problem Social History Alcohol intake: current Alcohol intake frequency: holidays/special occasions only Patient Tobacco Use Status: Former Tobacco user Office Procedures Cardiac Device Check Cardiac Device Check Details: Date of service 05/16/2025; in the current monitoring period, there is no evidence of atrial fibrillation. 61671-Ymrbki Cardiac Interrogation, subcut cardiac rhythm monitor Procedure code (CPT) selection complete Assessment & Plan Assessment & Plan (1) Implantable loop recorder present: Comment: 09/16/[address] Linda harvey CVA Code(s): Z95.818 - Presence of other cardiac implants and grafts Category: Medical (2) Stroke: Code(s): I63.9 - Cerebral infarction, unspecified Category: Medical Qualifiers: CVA mechanism: unspecified Qualified Code(s): I63.9 - Cerebral infarction, unspecified Plan x Coding Level of Care Code Procedure Only Diagnoses Implantable loop recorder present Z95.818 Cerebrovascular accident (CVA), unspecified mechanism I63.9 CVA mechanism: unspecified CPT Codes Cardiac Device Check - Cardiac Device 16: 64910-Vrmcxb Cardiac Interrogation, subcut cardiac rhythm monitor ([id number])
== END ==
PROVIDERS: PCP Internal Medicine; Visit Provider Internal Medicine
DX: I63.9 Cerebral infarction, unspecified (principal); Z95.818 Presence of other cardiac implants and grafts
CPT/HCPCS: 93298

== ENCOUNTER → 2025-06-15 23:59 | Outpatient (BNV) | payer BC, SELFPAY ==
--- NOTE | 2025-06-28 20:27 | MHC.OFFVIS ---
Intake Visit Reasons: Remote ILR check- [employer] Allergies epinephrine Adverse Reaction (Verified 11/23/23 08:35) Palpitations PFSH Medical History GERD (gastroesophageal reflux disease) Elevated cholesterol CVA (cerebral vascular accident) Diabetes Surgical History No pertinent past surgical history Family History Mother No problems noted. Father No problems noted. Sister Heart problem Social History Alcohol intake: current Alcohol intake frequency: holidays/special occasions only Patient Tobacco Use Status: Former Tobacco user Office Procedures Cardiac Device Check Cardiac Device Check Details: Date of service 06/15/2025; in the current monitoring period, there is no evidence of atrial fibrillation. 96896-Ucglzs Cardiac Interrogation, subcut cardiac rhythm monitor Procedure code (CPT) selection complete Assessment & Plan Assessment & Plan (1) Implantable loop recorder present: Comment: 09/16/[address] Linda harvey CVA Code(s): Z95.818 - Presence of other cardiac implants and grafts Category: Medical (2) Stroke: Code(s): I63.9 - Cerebral infarction, unspecified Category: Medical Qualifiers: CVA mechanism: unspecified Qualified Code(s): I63.9 - Cerebral infarction, unspecified Plan x Coding Level of Care Code Procedure Only Diagnoses Implantable loop recorder present Z95.818 Cerebrovascular accident (CVA), unspecified mechanism I63.9 CVA mechanism: unspecified CPT Codes Cardiac Device Check - Cardiac Device 16: 10589-Cmjxds Cardiac Interrogation, subcut cardiac rhythm monitor ([id number])
== END ==
PROVIDERS: PCP Internal Medicine; Visit Provider Internal Medicine
DX: I63.9 Cerebral infarction, unspecified (principal); Z95.818 Presence of other cardiac implants and grafts
CPT/HCPCS: 93298

== ENCOUNTER → 2025-07-15 23:59 | Outpatient (BNV) | payer BC, SELFPAY ==
--- NOTE | 2025-07-27 15:50 | MHC.OFFVIS ---
Intake Visit Reasons: Remote ILR check- [employer] Allergies epinephrine Adverse Reaction (Verified 11/23/23 08:35) Palpitations PFSH Medical History GERD (gastroesophageal reflux disease) Elevated cholesterol CVA (cerebral vascular accident) Diabetes Surgical History No pertinent past surgical history Family History Mother No problems noted. Father No problems noted. Sister Heart problem Social History Alcohol intake: current Alcohol intake frequency: holidays/special occasions only Patient Tobacco Use Status: Former Tobacco user Office Procedures Cardiac Device Check Cardiac Device Check Details: Date of service 07/15/2025; in the current monitoring period, there is no evidence of atrial fibrillation. 06029-Nlgjky Cardiac Interrogation, subcut cardiac rhythm monitor Procedure code (CPT) selection complete Assessment & Plan Assessment & Plan (1) Implantable loop recorder present: Comment: 09/16/[address] Linda harvey CVA Code(s): Z95.818 - Presence of other cardiac implants and grafts Category: Medical (2) Stroke: Code(s): I63.9 - Cerebral infarction, unspecified Category: Medical Qualifiers: CVA mechanism: unspecified Qualified Code(s): I63.9 - Cerebral infarction, unspecified Plan x Coding Level of Care Code Procedure Only Diagnoses Implantable loop recorder present Z95.818 Cerebrovascular accident (CVA), unspecified mechanism I63.9 CVA mechanism: unspecified CPT Codes Cardiac Device Check - Cardiac Device 16: 00858-Bwcpiz Cardiac Interrogation, subcut cardiac rhythm monitor ([id number])
== END ==
PROVIDERS: PCP Internal Medicine; Visit Provider Internal Medicine
DX: I63.9 Cerebral infarction, unspecified (principal); Z95.818 Presence of other cardiac implants and grafts
CPT/HCPCS: 93298

== ENCOUNTER → 2025-08-14 23:59 | Outpatient (BNV) | payer BC, SELFPAY ==
--- NOTE | 2025-08-16 16:10 | MHC.OFFVIS ---
Intake Visit Reasons: Remote ILR check- [employer] Allergies epinephrine Adverse Reaction (Verified 11/23/23 08:35) Palpitations PFSH Medical History GERD (gastroesophageal reflux disease) Elevated cholesterol CVA (cerebral vascular accident) Diabetes Surgical History No pertinent past surgical history Family History Mother No problems noted. Father No problems noted. Sister Heart problem Social History Alcohol intake: current Alcohol intake frequency: holidays/special occasions only Patient Tobacco Use Status: Former Tobacco user Office Procedures Cardiac Device Check Cardiac Device Check Details: Date of service 08/14/2025; in the current monitoring period, there is no evidence of atrial fibrillation. 14085-Ehpiwz Cardiac Interrogation, subcut cardiac rhythm monitor Procedure code (CPT) selection complete Assessment & Plan Assessment & Plan (1) Implantable loop recorder present: Comment: 09/16/[address] Linda harvey CVA Code(s): Z95.818 - Presence of other cardiac implants and grafts Category: Medical (2) Stroke: Code(s): I63.9 - Cerebral infarction, unspecified Category: Medical Qualifiers: CVA mechanism: unspecified Qualified Code(s): I63.9 - Cerebral infarction, unspecified Plan x Coding Level of Care Code Procedure Only Diagnoses Implantable loop recorder present Z95.818 Cerebrovascular accident (CVA), unspecified mechanism I63.9 CVA mechanism: unspecified CPT Codes Cardiac Device Check - Cardiac Device 16: 16361-Uwslni Cardiac Interrogation, subcut cardiac rhythm monitor ([id number])
== END ==
PROVIDERS: PCP Internal Medicine; Visit Provider Internal Medicine
DX: I63.9 Cerebral infarction, unspecified (principal); Z95.818 Presence of other cardiac implants and grafts
CPT/HCPCS: 93298

== ENCOUNTER 2025-09-01 00:17 | Emergency (ER) | payer BC, SELFPAY ==
--- OUTSIDE RECORDS SUMMARY | 2025-08-30 23:59 | XMS_ITS | Continuity of Care Document ---
Author Organization [facility] Adult Address [address] [place] [address]- Care Team Providers Care Director Of Purchasing Name Role Phone Breanna SANTIAGO, [facility] Primary Care Physician [phone] Encounter [facility] Date(s): 07/31/25 - 08/30/[address] [address]- Encounter Type: Triage Allergies, Adverse Reactions, Alerts Substance Criticality Severity Reaction Reaction Severity Status hydrOXYzine headache Active meloxicam High criticality Moderate Act mer Other Environmental Allergy seasonal allergies Active Januvia Upset stomach Active Immunizations Given and Recorded Vaccine Date Status Refusal Reason SARS-CoV-2 (COVID-19) mRNA BNT-162b2 vac 08/31/21 Recorded SARS-CoV-2 (COVID-19) mRNA BNT-162b2 vac 02/03/21 Recorded SARS-CoV-2 (COVID-19) mRNA BNT-162b2 vac 01/11/21 Recorded tetanus/diphtheria/pertussis, acel(Tdap) 1 12/30/18 Given influenza virus vaccine, inactivated 2 04/10/17 Gi joyce influenza virus vaccine, inactivated 3 10/28/13 Gi joyce pneumococcal 23-valent vaccine 11/24/14 Given Diphtheria/Tet/Pertussis, Acel (oldterm) 09/18/09 Given diphtheria-tetanus toxoids (DT) 10/31/97 Given 1Result Comment: [facility] [id number] 2Admin Note: Declined 3Admin Note: Declined Medications Acetaminophen 0 Refills, Maintenance, 06/19/25 6:26:00 AM EDT, Partial fill upon patient request if the prescription is for a schedule II opioid drug. Start Date: 06/19/25 Status: Ordered Medication Dispense Status: Completed Total Allowed Fills: 1 Fills Dispensed: 0 aspirin 81 mg oral delayed release tablet 81 mg, 1, tablet, By Mouth, Daily, # 90 tablet, Refills 0, Maintenance, 06/06/25 8:29:00 AM EDT, Partial fill upon patient request if the prescription is for a schedule II opioid drug. Start Date: 06/06/25 Status: Ordered Medication Dispense Status: Completed Quantity: 90.0 Unit: tablet Total Allowed Fills: 1 Fills Dispensed: 0 atorvastatin 80 mg oral tablet 1 tablet, By Mouth, Daily, # 90 tablet, 1 Refills, Maintenance, 05/12/25 10:18:00 AM EDT, [facility] #[id number], 161, cm, 01/06/25 14:53:00 EDT, Height Start Date: 05/12/25 Status: Ordered Medication Dispense Status: Completed Quantity: 90.0 Unit: tablet Total Allowed Fills: 1 Fills Dispensed: 0 Freestyle Marquis 2 Plus sensors Freestyle Marquis 2 Plus sensors, See Instructions, # 6 each, Refills 1, Tot. Refills 1, Maintenance,Use one sensor every 15 days for continuous glucose monitoring, 05/03/25 12:31:00 PM EDT, Supply, 161, cm, 01/06/25 14:53:00 EDT, Height Start Date: 05/03/25 Status: Ordered Medication Dispense Status: Completed Quantity: 6.0 Unit: each Total Allowed Fills: 2 Fills Dispensed: 0 Indications: Type 2 diabetes mellitus without complications; Jardiance 25 mg oral tablet 1 tablet, By Mouth, Daily in AM, # 90 tablet, 1 Refills, Maintenance, 03/21/25 10:45:00 AM EDT, [facility] #[id number], 161, cm, 01/06/25 14:53:00 EDT, Height Start Date: 03/21/25 Status: Ordered Medication Dispense Status: Completed Quantity: 90.0 Unit: tablet Total Allowed Fills: 1 Fills Dispensed: 0 lansoprazole 30 mg oral enteric coated capsule 1 capsule, By Mouth, Daily, # 90 capsule, 1 Refills, Maintenance, 08/07/25 3:13:00 PM EDT, [facility] #[id number], 158, cm, 07/10/25 13:53:00 EDT, Height, 70.5, kg, 06/19/25 7:34:00 EDT, Dry Weight Start Date: 08/07/25 Stop Date: 02/03/26 Status: Ordered Medication Dispense Status: Completed Quantity: 90.0 Unit: capsule Total Allowed Fills: 2 Fills Dispensed: 0 lisinopril 5 mg oral tablet 1, tablet, By Mouth, Daily, # 90 tablet, Refills 0, Tot. Refills 0, Maintenance, 07/17/25 10:28:00 AM EDT, Route to Pharmacy Electronically, [email or web address] #[id number], 158, cm, 07/10/25 13:53:00 EDT, Height, 70.5, kg, 06/19/25 7:34:00 EDT, Dry Weight Start Date: 07/17/25 Stop Date: 10/15/25 Status: Ordered Medication Dispense Status: Completed Quantity: 90.0 Unit: tablet Total Allowed Fills: 1 Fills Dispensed: 0 LORazepam 1 mg oral tablet 1 tablet = 1 mg, By Mouth, Daily, PRN as needed for anxiety, # 28 tablet, 2 Refills, Maintenance, 06/13/25 5:26:00 PM EDT, [facility] #[id number], 158, cm, 06/06/25 8:21:00 EDT, Height Start Date: 06/13/25 Stop Date: 09/05/25 Status: Ordered Medication Dispense Status: Completed Quantity: 28.0 Unit: tablet Total Allowed Fills: 3 Fills Dispensed: 0 Indications: Anxiety disorder, unspecified; magnesium oxide 400 mg oral tablet 1 tablet = 400 mg, By Mouth, Daily, # 7 tablet, 0 Refills, Maintenance, 06/06/25 8:29:00 AM EDT, Tablet, Partial fill upon patient request if the prescription is for a schedule II opioid drug. Start Date: 06/06/25 Stop Date: 07/06/25 Status: Ordered Medication Dispense Status: Completed Quantity: 7.0 Unit: tablet Total Allowed Fills: 1 Fills Dispensed: 0 metFORMIN 750 mg oral tablet, extended release 1 tablet, By Mouth, 2 times a day, # 180 tablet, 1 Refills, Maintenance, 08/08/25 1:29:00 PM EDT, [facility] #[id number], 158, cm, 07/10/25 13:53:00 EDT, Height, 70.5, kg, 06/19/25 7:34:00 EDT, Dry Weight Start Date: 08/08/25 Status: Ordered Medication Dispense Status: Completed Quantity: 180.0 Unit: tablet Total Allowed Fills: 1 Fills Dispensed: 0 minoxidil 2.5 mg oral tablet TAKE 1/2 TABLET BY MOUTH DAILY Start Date: 06/06/25 Status: Ordered Medication Dispense Status: Completed Total Allowed Fills: 1 Fills Dispensed: 0 Multivitamin Daily, 0 Refills, Maintenance, 03/27/23 9:23:00 AM EDT, Partial fill upon patient request if the prescription is for a schedule II opioid drug. Start Date: 03/27/23 Status: Ordered Medication Dispense Status: Completed Total Allowed Fills: 1 Fills Dispensed: 0 Ozempic 8 mg/3 mL (2 mg dose) subcutaneous solution See Instructions, INJECT 2MG SUBCUTANEOUS ONCE WEEKLY, # 3 mL, 0 Refills, Maintenance, 08/01/25 9:35:00 AM EDT, [facility] #[id number], 158, cm, 07/10/25 13:53:00 EDT, Height, 70.5, kg, :34:00 EDT, Dry Weight Start Date: 08/01/25 Status: Ordered Medication Dispense Status: Completed Quantity: 3.0 Unit: mL Total Allowed Fills: 1 Fills Dispensed: 0 ValACYclovir = 500 mg, By Mouth, Daily in AM, 0 Refills, Maintenance, 03/27/23 9:22:00 AM EDT, Partial fill upon patient request if the prescription is for a schedule II opioid drug. Start Date: 03/27/23 Status: Ordered Medication Dispense Status: Completed Total Allowed Fills: 1 Fills Dispensed: 0 ZyrTEC 10 mg oral tablet 1 tablet = 10 mg, By Mouth, Daily, PRN Other, 0 Refills, Maintenance, 06/07/25 1:17:00 PM EDT, Partial fill upon patient request if the prescription is for a schedule II opioid drug. Start Date: 06/07/25 Status: Ordered Medication Dispense Status: Completed Total Allowed Fills: 1 Fills Dispensed: 0 Problem List Condition Confirmation Course Effective Dates Status H ealth Status Informant Anxiety disorder Confirmed Active Chronic low back pain Confirmed Active Status post CVA Confirmed Active Hyperlipidemia associated with type 2 diabetes mellitus Confirmed Active Hypertension associated with type 2 diabetes mellitus Confirmed Active Allergic rhinitis, seasonal Confirmed Active Diabetes mellitus, type 2 Confirmed Active Social History Social History Type Response Tobacco Other: 10 pack yr hi story. Sexual Orientation Self described orien tation: ; Straight or heterosexual Sex Sex Representation Female (finding) Patient Care team information Care Team Personnel Name: Darlin Tomlin RN Position: [facility] RN Member Role: Primary Care Nurse Name: Monet Freed NP Position: [facility] PCO Associate Professional Member Role: Lif[employer] Consulting Provider Address: [address] [place] [address]- [place] Tele[employer]: Name: Valeriano Carlos MD Position: [facility] Physician - Primary Care Member Role: PCP Address: [address] [place] [address]- [place] Tele[employer]: Name: Tia Christensen CNM Position: [facility] Cuff Cutter Member Role: Primary Care Nurse Address: [address] [place] [address] [place] [address] [place] Tele[employer]: Care Team Related Persons Name: DELMY WARREN Name: TOVA ROBERTS Name: ELBA BOX Insurance Providers Guarantor name: PEDRO COREY Health Plan Information #: 1 Payer: [facility] Payer Identifier: COLLIN Member Number: [id number] Group Number: [id number] Subscriber Identifier: NA Relationship to Subscriber: self Coverage Type: NA Coverage Verification Date: NA Telecom: NA Address: NA
--- OUTSIDE RECORDS SUMMARY | 2025-08-30 23:59 | XMS_ITS | Continuity of Care Document ---
Author Organization [facility] Adult Address [address] [place] [address]- Care Team Providers Care Operations Director Name Role Phone Breanna SANTIAGO, [facility] Primary Care Physician Encounter [facility] Date(s): 07/31/25 - 08/30/[address] [address]- Encounter Type: Triage Allergies, Adverse Reactions, Alerts [...] (DT) 10/31/97 Given 1Result Comment: [facility] [id number] 2Admin Note: Declined 3Admin Note: Declined Medications [...] 1 Refills, Maintenance, 05/12/25 10:18:00 AM EDT, [facility] #[id number], 161, cm, 01/06/25 14:53:00 EDT, Height Start [...] 1 Refills, Maintenance, 03/21/25 10:45:00 AM EDT, [email or web address] #[id number], 161, cm, 01/06/25 14:53:00 EDT, Height Start Date: 03/21/25 Status: Ordered Medication Dispense Status: Completed Quantity: 90.0 Unit: tablet Total Allowed Fills: 1 Fills Dispensed: 0 lansoprazole 30 mg oral enteric coated capsule 1 capsule, By Mouth, Daily, # 90 capsule, 1 Refills, Maintenance, 08/07/25 3:13:00 PM EDT, [email or web address] #[id number], 158, cm, 07/10/25 13:53:00 EDT, Height, 70.5, kg, 06/19/25 7:34:00 EDT, Dry Weight Start Date: 08/07/25 Stop Date: 02/03/26 Status: Ordered Medication Dispense Status: Completed Quantity: 90.0 Unit: capsule Total Allowed Fills: 2 Fills Dispensed: 0 lisinopril 5 mg oral tablet 1, tablet, By Mouth, Daily, # 90 tablet, Refills 0, Tot. Refills 0, Maintenance, 07/17/25 10:28:00 AM EDT, Route to Pharmacy Electronically, [facility] #[id number], 158, cm, 07/10/25 13:53:00 EDT, Height, 70.5, [...] 2 Refills, Maintenance, 06/13/25 5:26:00 PM EDT, [email or web address] #[id number], 158, cm, 06/06/25 8:21:00 EDT, Height Start [...] 1 Refills, Maintenance, 08/08/25 1:29:00 PM EDT, [facility] #[id number], 158, cm, 07/10/25 13:53:00 EDT, Height, 70.5, [...] 0 Refills, Maintenance, 08/01/25 9:35:00 AM EDT, [facility] #[id number], 158, cm, 07/10/25 13:53:00 EDT, Height, 70.5, [...] Team Personnel Name: Darlin Tomlin RN Position: [facility] RN Member Role: Primary Care Nurse Name: Monet Freed NP Position: [facility] PCO Associate Professional Member Role: [employer] Consult[employer] Provider Address: [address] [place] [address]- [place] Tele[employer]: Name: Valeriano Carlos MD Position: [facility] Physician - Primary Care Member Role: PCP Address: [address] [place] [address]- [place] Telecom: Name: Tia Christensen CNM Position: [facility] Food Service Clerk Member Role: Primary Care Nurse Address: [address] [place] [address] [place] [address] [place] Telecom: Care Team Related Persons Name: DELMY WARREN Name: TOVA ROBERTS Name: ELBA BOX Insurance Providers Guarantor name: PEDRO COREY Health Plan Information #: 1 Payer: [facility] Payer Identifier: NA Member Number: [id number] Group Number: [id number] Subscriber Identifier: NA Relationship to Subscriber: self Coverage Type: NA Coverage Verification Date: NA Telecom: NA Address: NA
--- NOTE | 2025-09-01 | ECG_ITS ---
Test Reason : BACK/RIB PAIN Blood Pressure : */* mmHG Vent. Rate : 89 BPM Atrial Rate : 89 BPM P-R Int : 128 ms QRS Dur : 76 ms QT Int : 344 ms P-R-T Axes : 65 -1 21 degrees QTcB Int : 418 ms Normal sinus rhythm Low voltage QRS Borderline ECG When compared with ECG of 23-Nov-2023 09:06, No significant change was found Referred By: Generic ED Physician Electronically Signed By: EZEKIEL TEJADA
--- NOTE | ~2025-09-01 | XR_ITS ---
CLINICAL HISTORY: abd pain, low suspicion SBO 1 view abdomen Comparison: None provided Findings: No pneumoperitoneum or pneumatosis. No dilated loops of bowel or evidence for bowel obstruction. Moderate proximal colonic stool burden. Radiopaque T-shaped intrauterine device identified over the pelvis to the right of the midline. No acute fractures. IMPRESSION: 1. Nonobstructed bowel-gas pattern. 2. Moderate proximal colonic stool burden over the right hemiabdomen. This document has been electronically signed by: Giacomo Howard MD on 09/01/2025 03:51:50
--- NOTE | ~2025-09-01 | XR_ITS ---
CLINICAL HISTORY: LLL pain left rib pain 1 view chest x-ray. Comparison: None provided. Findings: No consolidation, pneumothorax, or effusion. Heart size normal. Linear radiopaque density identified over the medial aspect of the left lung base, possibly consistent with a loop recorder device. No acute fracture visualized. Impression: 1. No acute cardiopulmonary process. No focal pulmonary consolidation. This document has been electronically signed by: Giacomo Howard MD on 09/01/2025 03:53:58
[2025-09-01 00:32] VITALS: BP 126/67; PULSE 91; RESP 16; TEMP 36.1; O2SAT 98; BMI 27.0
--- OUTSIDE RECORDS SUMMARY | 2025-09-01 01:24 | XMS_ITS | Clinical Summary ---
Author Organization [facility] Address [address] [place] [address] Care Team Providers Care Director Instrumentation Name Role Phone Valeriano Carlos MD Primary Care Provider [phone] Social History Tobacco Use Types Packs/Day Years Used Date Smoking Tobacco: Never Assessed Comments Unknown Sex and Gender Information Value Date Recorded Sex Assigned at Not on file Legal Sex Female 9:10 PM EST Gender Identity Not on file Sexual Orientation Not on file Plan of Treatment Health Maintenance Due Date Last Done Comments Breast Cancer Screening 1971 Colorectal Cancer Screening: Colonoscopy 1971 DTaP,Tdap,and Td Vaccines (1 - Tdap) 1990 Hepatitis B Vaccines (1 of 3 - 19+ 3-dose series) 1990 Cervical Cancer Screening: P ap Smear 1992 Pneumococcal Vaccine: 50+ Ye ars (1 of 1 - PCV) 2021 Zoster Vaccines (1 of 2) 2021 HIV Screening 11/06/2023 Hepatitis C Screening 11/06/2023 Social Influencers of Health Screening 11/06/2023 Depression Screening 10/12/2024 COVID-19 Vaccine (1 - 2024-2 6 season) 2025 Influenza Vaccine (#1) 2025 RSV Immunization Adult Patie nts (1 - 1-dose 75+ series) 2046 HIB Vaccines Aged Out No longer eligi [...] patient's age to complete this topic Meningococcal B Vaccine Aged Out No l onger eligible based on patient's age to complete this topic RSV Immunization Patients Un nadir 20 months Aged Out No longer eligible b ased on patient's age to complete this topic Varicella Vaccines Aged Out No longer eligible based on patient's age to complete this topic Care Teams Director Instrumentation Relationship Specialty Start Date End Date Valeriano Carlos MD PCP - General 05/13/23
[2025-09-01 02:55] VITALS: BP 117/67; PULSE 90; RESP 18; O2SAT 97
[2025-09-01 03:06] LABS: Hematocrit 40.1 % (37.0-47.0); Hemoglobin 13.9 g/dl (12.0-16.0); Imm Gran Abs Auto 0.01 X10*3/uL (0.00-0.03); Imm Gran Pct Auto 0.1 % (0.0-0.4); Lymphocytes Absolute Auto 1.5 X10*3/uL (1.2-4.9); MANUAL DIFF FLAG NO; Mean Corpuscular HGB Conc 34.7 g/dl (31.0-35.0); Mean Corpuscular Hemoglobin 32.6 pg (27.0-33.0); Mean Corpuscular Volume 93.9 fL (80.0-98.0); NRBC Abs Auto 0.000 X10*3/uL (0.0-0.012); NRBC Pct Auto 0.0 /100WBC (0.0-0.2); Platelet Count 282 X10*3/uL (160-400); Red Blood Count 4.27 X10*6/uL (4.20-5.50); White Blood Count 8.4 X10*3/uL (4.8-10.8)
[2025-09-01 03:23] LABS: Alanine Aminotransferase 79 U/L (0-31); Albumin Level 5.1 g/dL (3.5-5.0); Alkaline Phosphatase 106 U/L (39-117); Anion Gap 11 (12-20); Aspartate Amino Transferase 38 U/L (5-31); Blood Urea Nitrogen 11 mg/dL (9-16); Calcium 10.0 mg/dL (8.4-10.2); Carbon Dioxide 27 mmol/L (22-29); Chloride 107 mmol/L (96-108); Creatinine Clr Calc Pharmacy 123.8; Estimated Glomerular Filt Rate > 60; Lipase 35 U/L (8-78); Potassium 4.3 mmol/L (3.3-5.1); Sodium 141 mmol/L (135-145); Total Protein 7.3 g/dL (6.5-8.0)
--- NOTE | 2025-09-01 03:56 | ED.GENADULT ---
HPI - General Adult General Chief complaint: General Medical Stated complaint: Stomach Pain Time Seen by Provider: 09/01/25 01:57 Source: patient Mode of arrival: ambulatory Limitations: no limitations History of Present Illness ED Provider: Dr. Sherry Chau HPI narrative: Patient comes to the emergency room complaining of 3 hours of left-sided chest pain worse with inspiration. Patient believes that she has a lot of gas in her abdomen. Patient denies any significant chest pain, no shortness of breath. Denies nausea vomiting diarrhea, denies fever chills. Related Data Home Medications ?Medication ?Instructions ?Recorded ?Confirmed atorvastatin 80 mg tablet 80 mg PO BEDTIME 06/25/23 11/07/24 empagliflozin 25 mg tablet 25 mg PO QAM 06/25/23 11/07/24 (Jardiance) hydrocodone 5 mg-acetaminophen 300 1 tab PO BID PRN Pain 06/25/23 11/07/24 mg tablet lansoprazole 30 mg capsule,delayed 30 mg PO DAILY 06/25/23 11/07/24 release lisinopril 5 mg tablet 5 mg PO DAILY 06/25/23 11/07/24 lorazepam 1 mg tablet 1 mg PO BEDTIME PRN anxiety/sleep 06/25/23 11/07/24 valacyclovir 500 mg tablet 500 mg PO DAILY 06/25/23 11/07/24 semaglutide 1 mg/dose (2 mg/1.5 2 mg subcut QWEEK 09/10/23 11/07/24 mL) subcutaneous pen injector (Ozempic) aspirin 81 mg tablet,delayed 81 mg PO DAILY 03/28/24 11/07/24 release (Adult Aspirin Regimen) metformin 1,000 mg tablet 750 mg PO BID 03/28/24 11/07/24 Allergies Allergy/AdvReac Type Severity Reaction Status Date / Time epinephrine AdvReac Palpitation Verified 09/01/25 00:39 s Review of Systems Review of Systems: Constitutional : No Weight loss, No Fever, No Chills, No Night Sweats, No Fatigue, No Malaise ENT/Mouth : No Hearing loss, No Ear Pain, No Nasal Congestion, No Sinus Pain, No Hoarseness, No sore throat, No Rhinorrhea, No Swallowing Difficulty Eyes: No Eye Pain, No Swelling, No Redness, No Foreign Body, No Discharge, No Vision Changes Cardiovascular : No Chest Pain, No SOB, No Dyspnea on Exertion, No Orthopnea, No Edema, No Palpitations Respiratory : No Cough, No Sputum, No Wheezing, No Smoke Exposure, No Dyspnea Gastrointestinal : No Nausea, No Vomiting, No Diarrhea, No Constipation, No abdominal Pain, No Hematochezia, No Melena Genitourinary : no irregular bleeding, No Dysuria, No Urinary Frequency, No Hematuria, No Urinary Incontinence, No Urgency, No Flank Pain, No Urinary Flow Changes, No Hesitancy Musculoskeletal : Thinning of rib pain with deep inspirations, No joint pain, No Myalgias, No Joint Swelling Skin : No Skin Lesions, No rash Neuro : No Weakness, No Numbness, No Paresthesias, No Loss of Consciousness, No Dizziness, No Headache Psych : No Anxiety/Panic, No Depression, No SI/HI/AH/VH, No Social Issues, Heme/Lymph: No Bruising, No Bleeding,No Lymphadenopathy Endocrine : No Polyuria, No Polydipsia, No Temperature Intolerance PMFSH Past Medical History Medical History GERD (gastroesophageal reflux disease) Elevated cholesterol CVA (cerebral vascular accident) Diabetes Surgical History No pertinent past surgical history Family History Family History Mother No problems noted. Father No problems noted. Sister Heart problem Social History Social History Unable to assess alcohol history related to: Unknown Alcohol intake: current Alcohol intake frequency: holidays/special occasions only Patient Tobacco Use Status: Former Tobacco user Smoked in Last 30 Days: No Use of substances other than those prescribed or required for medical reasons: No Any prior treatment program specific to substance use: No Advance Directives: No Advance Directives Information Provided: Yes Do you have a plan to hurt others: No Plan Patient : No Physical Exam ED Exam Exam: Appearance: Alert. Oriented X3. No acute distress. Eyes: Pupils equal, round and reactive to light. ENT: Pharynx normal. Neck: Normal inspection. Neck supple. No lymph nodes noted. No crepitus CVS: Normal heart rate and rhythm. Pulses normal. Normal S1 and S2 Respiratory: No respiratory distress. Breath sounds normal. No Wheezing. No rales nonreproducible pain to palpation Abdomen: Soft and nontender. No rigidity. No distention. Skin: Skin warm and dry. Normal skin color. Normal skin turgor. Extremities: No lower extremity edema. No Lacerations. No Rash Neuro: Oriented X 3. No motor deficit. No sensory deficit. Moving all extremities. No slurred speech. CN 2 through 12 grossly intact Psych: calm, cooperative, normal affect Vital Signs: Vital Signs - 24 hr 09/01/25 00:32 09/01/25 02:55 Temperature 97.0 F Pulse Rate 91 90 Respiratory Rate 16 18 Blood Pressure 126/67 117/67 Pulse Oximetry 98 97 Oxygen Delivery Method Room Air Room Air BMI result Body Mass Index 27.0 Medical Decision Making Medical Decision Making [facility] Narrative: my interpretation of EKG: Normal sinus rhythm, heart rate 89, no ST segment depression or elevation, no T-wave inversion, QTC 418 my interpretation of labs: No significant abnormality in patient's hematology or chemistry, slightly bumped LFTs, no abdominal pain KUB and chest x-ray did not show any acute Abnormality patient's vitals stable, blood pressure 117/67, heart rate 90, respirations 18, oxygen saturation 97% on room air I discussed with the patient that she likel has per received versus costochondritis. Patient agrees with plan, patient to be discharged home, patient states that she has plenty of Tylenol and ibuprofen at home. Differential Diagnosis Differential Diagnoses: The differential diagnosis associated with the presentation includes ( as above) Lab Data [facility] Lab Attestation statement: I reviewed the patient's lab results. 09/01/25 03:01 09/01/25 03:01 Labs: Lab Results 09/01/25 Range/Units 03:01 WBC 8.4 (4.8-10.8) X10*3/uL RBC 4.27 (4.20-5.50) X10*6/uL Hgb 13.9 (12.0-16.0) g/dl Hct 40.1 (37.0-47.0) % MCV 93.9 (80.0-98.0) fL MCH 32.6 (27.0-33.0) pg MCHC 34.7 (31.0-35.0) g/dl RDW 12.6 (11.0-16.0) % Plt Count 282 (160-400) X10*3/uL MPV 9.5 (9.4-12.3) fL Immature Gran % (Auto) 0.1 (0.0-0.4) % Neut % (Auto) 72.9 (45-73) % Lymph % (Auto) 17.7 L (20-40) % [place] % (Auto) 7.4 (2-11) % Eos % (Auto) 1.7 (0-4) % Baso % (Auto) 0.2 (0-2) % Lymph # (Auto) 1.5 (1.2-4.9) X10*3/uL [place] # (Auto) 0.6 (0.1-1.2) X10*3/uL Eos # (Auto) 0.1 (0.0-0.4) X10*3/uL Baso # (Auto) 0.0 (0.0-0.2) X10*3/uL Abs Immat Gran (auto) 0.01 (0.00-0.03) X10*3/uL Absolute Neuts (auto) 6.1 (2.0-8.3) x10*3/uL Absolute Nucleated RBC 0.000 (0.0-0.012) X10*3/uL Nucleated RBC % (auto) 0.0 (0.0-0.2) /100WBC Sodium 141 (135-145) mmol/L Potassium 4.3 (3.3-5.1) mmol/L Chloride 107 (96-108) mmol/L Carbon Dioxide 27 (22-29) mmol/L Anion Gap 11 L (12-20) BUN 11 (9-16) mg/dL Creatinine 0.49 L (0.5-1.4) mg/dL Estim Creat Clear Calc 123.8 Estimated GFR > 60 Random Glucose 157 H (60-115) mg/dL Calcium 10.0 (8.4-10.2) mg/dL Total Bilirubin 0.4 (0.0-1.0) mg/dL Direct Bilirubin 0.2 (0.0-0.5) mg/dL AST 38 H (5-31) U/L ALT 79 H (0-31) U/L Alkaline Phosphatase 106 (39-117) U/L Total Protein 7.3 (6.5-8.0) g/dL Albumin 5.1 H (3.5-5.0) g/dL Lipase 35 (8-78) U/L Independent Interpretation I performed an independent interpretation of an: EKG and Plain X-Ray Radiology Impression Discussion of test interpretation with radiology: I have reviewed the radiologist's reading. Radiologist Impression: No consolidation, pneumothorax, or effusion. Heart size normal. Linear radiopaque density identified over the medial aspect of the left lung base, possibly consistent with a loop recorder device. No acute fracture visualized. No pneumoperitoneum or pneumatosis. No dilated loops of bowel or evidence for bowel obstruction. Moderate proximal colonic stool burden. Radiopaque T-shaped intrauterine device identified over the pelvis to the right of the midline. No acute fractures. IMPRESSION: 1. Nonobstructed bowel-gas pattern. 2. Moderate proximal colonic stool burden over the right hemiabdomen. Discharge Plan Discharge Clinical Impression: Pleurisy Patient Disposition: Home, Self-Care Instructions: Pleurisy (ED) Additional Instructions: Please follow-up with your primary care physician tomorrow. If you have any worsening or new symptoms, please return to the emergency room or call 911 Prescriptions: No Action Jardiance 25 mg tablet 25 mg PO QAM lisinopril 5 mg tablet 5 mg PO DAILY atorvastatin 80 mg tablet 80 mg PO BEDTIME valacyclovir 500 mg tablet 500 mg PO DAILY hydrocodone-acetaminophen 5-300 mg tablet 1 tab PO BID PRN (Reason: Pain) lorazepam 1 mg tablet 1 mg PO BEDTIME PRN (Reason: anxiety/sleep) lansoprazole 30 mg capsule,delayed release(DR/EC) 30 mg PO DAILY Ozempic 1 mg/dose (2 mg/1.5 mL) pen injector 2 mg subcut QWEEK metformin 1,000 mg tablet 750 mg PO BID aspirin [Adult Aspirin Regimen] 81 mg tablet,delayed release (DR/EC) 81 mg PO DAILY Print Language: Indonesian
[2025-09-01 05:30] VITALS: BP 101/61; PULSE 90; RESP 18; O2SAT 96
[2025-09-01 05:42] VITALS: BP 101/61; PULSE 90; RESP 18; TEMP 36.2; O2SAT 96
== END 2025-09-01 05:44 | disposition home or self-care (01) ==
PROVIDERS: Emergency Provider Emergency Medicine; PCP Internal Medicine
DX: R09.1 Pleurisy (principal); Z79.899 Other long term (current) drug therapy; Z87.891 Personal history of nicotine dependence
CPT/HCPCS: 36415; 71045; 74018; 80048; 80076; 83690; 85025; 93005; 99285

== ENCOUNTER → 2025-09-01 00:51 | Outpatient (BNV) | payer BC, SELFPAY | PROVIDERS: Emergency Provider Emergency Medicine; PCP Internal Medicine; Visit Provider Internal Medicine | DX: R07.89 Other chest pain (principal); M54.50 Low back pain, unspecified | CPT/HCPCS: 93010 ==

== ENCOUNTER → 2025-09-01 02:11 | Outpatient (BNV) | payer BC, SELFPAY | PROVIDERS: Emergency Provider Emergency Medicine; PCP Internal Medicine; Visit Provider Radiology Diagnostic Radiology | DX: R07.89 Other chest pain (principal); R10.9 Unspecified abdominal pain | CPT/HCPCS: 71045; 74018 ==

== ENCOUNTER → 2025-09-03 15:44 | Outpatient (BNV) | payer BC, SELFPAY | PROVIDERS: PCP Internal Medicine; Visit Provider Internal Medicine | DX: I63.9 Cerebral infarction, unspecified (principal); Z95.818 Presence of other cardiac implants and grafts | CPT/HCPCS: 93298 ==

== ENCOUNTER 2025-09-18 12:57 | Outpatient (AMB) | payer BC, SELFPAY ==
[2025-09-18 13:16] VITALS: BP 110/60; PULSE 97; BMI 27.7
--- NOTE | 2025-09-18 13:16 | MHC.OFFVIS ---
Vital Signs 09/18/25 13:16 Height 5 ft 3 in Weight 156 lb 8.451 oz BMI 27.7 BP 110/60 Blood Pressure Location Lt brachial Position Sitting Pulse 97 Pulse Source Pulse Oximeter Intake Visit Reasons: [employer] check and fu Allergies epinephrine Adverse Reaction (Verified 09/01/25 00:39) Palpitations Medication List - Last Reconciled 09/18/25 by Deloris Farrell NP-C aspirin (Adult Aspirin Regimen) 81 mg PO DAILY atorvastatin 80 mg PO BEDTIME empagliflozin (Jardiance) 25 mg PO QAM ibuprofen 600 mg PO TID PRN lansoprazole 30 mg PO DAILY lisinopril 5 mg PO DAILY lorazepam 1 mg PO BEDTIME PRN metformin 750 mg PO BID semaglutide (Ozempic) 2 mg subcut QWEEK valacyclovir 500 mg PO DAILY HPI HPI [employer] check and fu: Details: The patient is a 54 year old female presenting for follow-up of a prior cerebrovascular accident (CVA) and ongoing cardiac evaluation for a possible embolic source. Her past medical history is significant for diabetes, hyperlipidemia, and GERD. Her current medications include aspirin, atorvastatin, and lisinopril. Regarding the CVA, the patient experienced a slight facial droop on one side, which prompted her to go to the emergency room. She denied any associated headache, dizziness, vision changes, or speech changes at that time and reports no neurological symptoms since her last visit in October. For cardiac evaluation, she has an implanted loop recorder, which has been in place for approximately two years. The device has not recorded any arrhythmic events such as atrial fibrillation to date. An echocardiogram from July 16, 2023, was normal with an ejection fraction of 60-65%. [facility] Medical History (Updated 09/18/25 @ 17:49 by Deloris Farrell NP-C) GERD (gastroesophageal reflux disease) Elevated cholesterol CVA (cerebral vascular accident) Diabetes Surgical History No pertinent past surgical history Family History Mother No problems noted. Father No problems noted. Sister Heart problem Social History Alcohol intake: current Alcohol intake frequency: holidays/special occasions only Patient Tobacco Use Status: Former Tobacco user Review of Systems Const All systems reviewed & are unremarkable except as noted in HPI and below Denies weakness ENT Denies dizziness Card Denies chest pain, Denies chest pain with activity, Denies syncope, Denies rapid heart rate, Denies pedal edema, Denies edema, Denies leg edema, Denies lightheadedness, Denies palpitations, Denies dyspnea, Denies dyspnea on exertion and Denies orthopnea Resp Denies cough, Denies dyspnea and Denies dyspnea on exertion GI Denies hematochezia and Denies change in stool character Musc Denies abnormal gait, Denies muscle cramps, Denies muscle weakness, Denies numbness, Denies radiating pain into limb and Denies tingling Neuro Denies abnormal gait, Denies dizziness, Denies syncope, Denies numbness, Denies tingling and Denies weakness Endo Denies palpitations Physical Exam Vital Signs: Last Vital Signs Pulse 97 09/18/25 13:16 BP 110/60 09/18/25 13:16 BMI result Body Mass Index 27.7 Const General: cooperative, healthy appearing, comfortable and no acute distress Orientation/consciousness: patient oriented x3 Neck Neck: Yes normal visual inspection Resp Effort & Inspection: normal respiratory effort Auscultation: clear to auscultation bilaterally, no crackles, no rales, no rhonchi and no wheezes Cardio Rate: regular rate Rhythm: regular rhythm Heart sounds: S1 normal heart sound present, S2 normal heart sound present, no gallops, no murmurs and no rubs Neuro General: patient oriented x3 Extrem General: Yes normal to inspection, No no pedal edema and No calf tenderness Psych Appearance: grossly normal Mental Status: mental status grossly normal Speech and movement: Normal speech and movement present Office Procedures Cardiac Device Check Cardiac Device Check Details: Today, ILT interrogation shows no alerts, underlying rhythm sinus, battery life good [id number] Cardiac Interrogation, subcut cardiac rhythm monitor Procedure code (CPT) selection complete Assessment & Plan Assessment & Plan (1) Implantable loop recorder present: Comment: 09/16/[address] Linda harvey CVA Code(s): Z95.818 - Presence of other cardiac implants and grafts Category: Medical Plan: ILR placed 09/16/2023 to evaluate for embolic cause of prior CVA. To this date there are no alerts and no recurrent neurological events. Battery life still good on her ILR. Cardiology follow-up 1 year, sooner if needed. (2) CVA (cerebral vascular accident): Comment: 04/2023 Code(s): I63.9 - Cerebral infarction, unspecified Category: Medical Plan: Prior CVA with right-sided facial droop with minimal residual. No recurrent neurological events since that time. Plan I informed the patient that her heart monitor has not detected any abnormal rhythms over the past two years, which is reassuring. I explained that while this does not explain the cause of her previous stroke, it indicates she is not currently at high risk for a stroke from a heart arrhythmia. We will continue with remote monitoring of her device, and she was informed that we will call her if any abnormalities are detected. I advised her to return sooner than the scheduled one-year follow-up if she experiences any symptoms she believes are heart-related. Assuming she remains stable, we have scheduled a follow-up appointment in one year. Patient Instructions: - Continue with the remote monitoring of your heart device at home. - We will call you if we see anything concerning on your heart monitor. - Please schedule a follow-up appointment for one year from now. - If you have any new symptoms that you think are related to your heart, please call our office to be seen sooner. Patient was informed and verbally consented to the use of an ambient scribe for clinic note documentation during this visit. Visit time spent on chart review, interview, assessment, orders, documentation. Coding Level of Care Code Complex visit Add On G2211 Diagnoses Implantable loop recorder present Z95.818 CVA (cerebral vascular accident) I63.9 CPT Codes Cardiac Device Check - Cardiac Device 16: [id number] Cardiac Interrogation, subcut cardiac rhythm monitor ([id number]) Time Spent (min) 24
== END 2025-09-18 13:42 | disposition home or self-care (01) ==
LOC: HO.HCS 12:58
PROVIDERS: PCP Internal Medicine; Visit Provider Nurse Practitioner Family
DX: I63.9 Cerebral infarction, unspecified (principal); Z95.818 Presence of other cardiac implants and grafts
CPT/HCPCS: 93298

== ENCOUNTER → 2025-10-02 12:19 | Outpatient (BNV) | payer BC, SELFPAY | PROVIDERS: PCP Internal Medicine; Visit Provider Internal Medicine | DX: I63.9 Cerebral infarction, unspecified (principal) | CPT/HCPCS: 93298 ==